=== PATIENT | male | born 1985 | race Asian ===

== ENCOUNTER 2016-10-30 15:15 | Emergency (ER) | payer MEDICAID ==
--- NOTE | 2016-10-30 15:23 | ER Document Report ---
ED Medical Screen (RME) - General Stated Complaint: ANXIOUS Notes: The like he had an episode of anxiety today prior to arrival. I greeted and performed a rapid initial assessment of this patient. Comprehensive ED assessment and evaluation of the patient, analysis of test results and completion of the medical decision making process will be conducted by additional ED providers. TRAVEL OUTSIDE OF THE [place] IN LAST 30 DAYS: No - Related Data Allergies/Adverse Reactions: codeine [Codeine] Adverse Reaction (Intermediate, Verified 03/07/16 02:50) severe stomach pain tramadol HCl [From Ultram] Adverse Reaction (Intermediate, Verified 03/07/16 02: 50) severe stomach problems Past Medical History - Past Medical History Cardiac Medical History: Reports: Hx Hypertension, Hx Heart Murmur - MVP Pulmonary Medical History: Reports: Hx Pneumonia GI Medical History: Reports: Hx Gastritis, Hx Gastroesophageal Reflux Disease, Hx Hiatal Hernia Psychiatric Medical History: Reports: Hx Anxiety, Hx Depression Past Surgical History: Reports: Hx Orthopedic Surgery - club feet bilateral - Immunizations Hx Diphtheria, Pertussis, Tetanus Vaccination: Yes
[2016-10-30] MEDS ORDERED: LORAZEPAM 1 MG TABLET PO ONE (17:39)
--- NOTE | 2016-10-30 18:04 | ER Document Report ---
ED General - General Chief Complaint: Weakness Stated Complaint: ANXIOUS Mode of Arrival: Ambulatory Information source: Patient Notes: 31-year-old male history of pots and mitral valve prolapse presents with complaints of intermittent heart racing episodes. Patient notes it worsens when he stands up. 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 IN LAST 30 DAYS: No - HPI Onset: Other - 1 year duration Onset/Duration: Intermittent Quality of pain: No pain Severity: Mild Pain Level: 1 Associated symptoms: Other Exacerbated by: Standing Relieved by: Denies Similar symptoms previously: Yes Recently seen / treated by doctor: Yes - Related Data Allergies/Adverse Reactions: codeine [Codeine] Adverse Reaction (Intermediate, Verified 03/07/16 02:50) severe stomach pain tramadol HCl [From Ultram] Adverse Reaction (Intermediate, Verified 03/07/16 02: 50) severe stomach problems Past Medical History - Social History Smoking Status: Never Smoker Cigarette use (# per day): No Chew tobacco use (# tins/day): No Smoking Education Provided: No Family History: Reviewed & Not Pertinent Patient has suicidal ideation: No Patient has homicidal ideation: No - Past Medical History Cardiac Medical History: Reports: Hx Hypertension, Hx Heart Murmur - MVP Pulmonary Medical History: Reports: Hx Pneumonia Renal/ Medical History: Denies: Hx Peritoneal Dialysis GI Medical History: Reports: Hx Gastritis, Hx Gastroesophageal Reflux Disease, Hx Hiatal Hernia Psychiatric Medical History: Reports: Hx Anxiety, Hx Depression Past Surgical History: Reports: Hx Orthopedic Surgery - club feet bilateral - Immunizations Hx Diphtheria, Pertussis, Tetanus Vaccination: Yes Review of Systems - Review of Systems Notes: REVIEW OF SYSTEMS: CONSTITUTIONAL : Denies fever, chills, or sweats. Denies recent illness. EENT: Denies eye, ear, throat, or mouth pain or symptoms. Denies nasal or sinus congestion or discharge. Denies throat, tongue, or mouth swelling or difficulty swallowing. CARDIOVASCULAR: Admits to heart racing RESPIRATORY: Denies cough, cold, or chest congestion. Denies shortness of breath, difficulty breathing, or wheezing. GASTROINTESTINAL: Denies abdominal pain or distention. Denies nausea, vomiting , or diarrhea. Denies blood in vomitus, stools, or per rectum. Denies black, tarry stools. Denies constipation. GENITOURINARY: Denies difficulty urinating, painful urination, burning, frequency, blood in urine, or discharge. MUSCULOSKELETAL: Denies back or neck pain or stiffness. Denies joint pain or swelling. SKIN: Denies rash, lesions or sores. HEMATOLOGIC : Denies easy bruising or bleeding. LYMPHATIC: Denies swollen, enlarged glands. NEUROLOGICAL: Denies confusion or altered mental status. Denies passing out or loss of consciousness. Denies dizziness or lightheadedness. Denies headache. Denies weakness or paralysis or loss of use of either side. Denies problems with gait or speech. Denies sensory loss, numbness, or tingling. Denies seizures. PSYCHIATRIC: Denies anxiety or stress. Denies depression, suicidal ideation, or homicidal ideation. ALL OTHER SYSTEMS REVIEWED AND NEGATIVE. Dictation was performed using [employer] voice recognition software PHYSICAL EXAMINATION: GENERAL: Well-appearing, well-nourished and in no acute distress. HEAD: Atraumatic, normocephalic. EYES: Pupils equal round and reactive to light, extraocular movements intact, sclera anicteric, conjunctiva are normal. ENT: Nares patent, oropharynx clear without exudates. Moist mucous membranes. NECK: Normal range of motion, supple without lymphadenopathy LUNGS: Breath sounds clear to auscultation bilaterally and equal. No wheezes rales or rhonchi. HEART: Regular rate and rhythm with murmur ABDOMEN: Soft, nontender, nondistended abdomen. No guarding, no rebound. No masses appreciated. Musculoskeletal: Normal range of motion, no pitting or edema. No cyanosis. NEUROLOGICAL: Cranial nerves grossly intact. Normal speech, normal gait. Normal sensory, motor exams PSYCH: Normal mood, normal affect. SKIN: Warm, Dry, normal turgor, no rashes or lesions noted. Physical Exam - Vital signs Vitals: Temp Pulse Resp BP Pulse Ox 98.3 F 79 18 131/79 H 98 10/30/16 15:49 10/30/16 15:49 10/30/16 15:49 10/30/16 15:49 10/30/16 15:49 Course - Re-evaluation Re-evalutation: 10/30/16 22:46 I believe patient's symptoms are secondary to POTS vs his mitral valve prolapse , pt tsh normal, bilirubin has improved, given that he is well and symptoms on going for 1 year i believe he is stable ot follow up with his rickshaw driver After performing a Medical Screening Examination, I estimate there is LOW risk for RUPTURED ESOPHAGUS, PNEUMOTHORAX, PULMONARY EMBOLISM, ACUTE CORONARY SYNDROME, OR THORACIC AORTIC DISSECTION, thus I consider the discharge disposition reasonable. The patient and I have discussed the diagnosis and risks , and we agree with discharging home with close follow-up. We also discussed returning to the Emergency Department immediately if new or worsening symptoms occur. We have discussed the symptoms which are most concerning (e.g., bloody sputum, worsening pain or shortness of breath) that necessitate immediate return. - Vital Signs Vital signs: Temp Pulse Resp BP Pulse Ox 97.8 F 77 16 134/82 H 99 10/30/16 19:07 10/30/16 19:07 10/30/16 19:07 10/30/16 19:07 10/30/16 19:07 - Laboratory Result Diagrams: 10/30/16 18:17 10/30/16 18:17 Laboratory results interpreted by me: 10/30/16 18:17 Total Bilirubin 2.9 H - EKG Interpretation by Ct EKG shows normal: Sinus rhythm, [place], Intervals, QRS Complexes Discharge - Discharge Clinical Impression: MVP (mitral valve prolapse), Tachycardia Condition: Stable Disposition: HOME, SELF-CARE Instructions: Mitral Valve Prolapse ([facility]) Referrals: NICKOLAS HOLLEY MD [Primary Care Provider] - Follow up as needed ISREAL JOHN MD [EMERITUS] - Follow up tomorrow
[2016-10-30 18:44] LABS: ABSOLUTE BASOPHILS # (AUTO) 0.1 10^3/uL (0.0-0.2); ABSOLUTE LYMPHOCYTES (AUTO) 1.4 10^3/uL (0.5-4.7); ABSOLUTE MONOCYTES (AUTO) 0.6 10^3/uL (0.1-1.4); BASOPHILS % (AUTO) 0.6 % (0-2); EOSINOPHILS % (AUTO) 0.3 % (0-6); RED CELL DISTRIBUTION WIDTH 13.1 % (11.5-14.0)
[2016-10-30 18:46] LABS: ABSOLUTE NEUT (AUTO) 6.9 10^3/uL (1.7-8.2); HEMATOCRIT 46.3 % (37.9-51.0); HEMOGLOBIN 15.4 g/dL (13.5-17.0); HGB HCT DIFFERENCE -0.1; LYMPHOCYTES % (AUTO) 15.1 % (13-45); MEAN CORPUSCULAR HEMOGLOBIN 29.4 pg (27.0-33.4); MEAN CORPUSCULAR HGB CONC 33.2 g/dL (32.0-36.0); MEAN CORPUSCULAR VOLUME 89 fl (80-97); RED BLOOD COUNT 5.22 10^6/uL (4.35-5.55)
[2016-10-30 19:03] LABS: ALANINE AMINOTRANSFERASE 32 U/L (21-72); ALBUMIN 4.1 g/dL (3.5-5.0); ALKALINE PHOSPHATASE 72 U/L (38-126); ANION GAP 13 (5-19); ASPARTATE AMINO TRANSFERASE 21 U/L (17-59); BILIRUBIN,TOTAL 2.9 mg/dL (0.2-1.3); BLOOD UREA NITROGEN 16 mg/dL (7-20); CALCIUM 9.7 mg/dL (8.4-10.2); CARBON DIOXIDE 24 mmol/L (22-30); CHLORIDE 105 mmol/L (98-107); CREATININE RESULT 1.02 mg/dL (0.52-1.25); GLUCOSE 94 mg/dL (75-110); POTASSIUM 4.2 mmol/L (3.6-5.0); SODIUM 142.1 mmol/L (137-145); TOTAL PROTEIN 7.5 g/dL (6.3-8.2)
[2016-10-30 19:09] VITALS: BP 134/82
--- NOTE | 2016-10-30 22:53 | EKG REPORT ---
SEVERITY:- BORDERLINE ECG - SINUS RHYTHM BORDERLINE T ABNORMALITIES, ANT-LAT LEADS : Confirmed by: Ana Laura Edge MD 30-Oct-2016 22:52:53
== END 2016-10-30 18:40 | disposition home or self-care (01) ==
LOC: ER 15:15
DX: I34.1 Nonrheumatic mitral (valve) prolapse (principal); R53.1 Weakness; R00.0 Tachycardia, unspecified; F41.9 Anxiety disorder, unspecified; I10 Essential (primary) hypertension; K21.9 Gastro-esophageal reflux disease without esophagitis; Z88.6 Allergy status to analgesic agent
CPT/HCPCS: 36415; 80053; 84443; 85025; 93005; 93010; 99285

== ENCOUNTER → 2016-11-16 | Outpatient (CLI) | payer MEDICAID | LOC: RAD 14:18 | PROVIDERS: ATTEND Specialist | DX: G35 Multiple sclerosis (principal) | CPT/HCPCS: 70551 ==

== ENCOUNTER → 2016-12-13 | Outpatient (CLI) | payer MEDICAID ==
[2016-12-13 16:04] LABS: ABSOLUTE BASOPHILS # (AUTO) 0.1 10^3/uL (0.0-0.2); ABSOLUTE EOSINOPHILS # (AUTO) 0.1 10^3/uL (0.0-0.6); ABSOLUTE MONOCYTES (AUTO) 1.1 10^3/uL (0.1-1.4); ABSOLUTE NEUT (AUTO) 5.5 10^3/uL (1.7-8.2); EOSINOPHILS % (AUTO) 1.8 % (0-6); HEMATOCRIT 45.2 % (37.9-51.0); HEMOGLOBIN 15.5 g/dL (13.5-17.0); HGB HCT DIFFERENCE 1.3; LYMPHOCYTES % (AUTO) 12.5 % (13-45); MEAN CORPUSCULAR HEMOGLOBIN 30.3 pg (27.0-33.4); MEAN CORPUSCULAR HGB CONC 34.3 g/dL (32.0-36.0); MEAN CORPUSCULAR VOLUME 88 fl (80-97); MONOCYTES % (AUTO) 14.1 % (3-13); RED BLOOD COUNT 5.11 10^6/uL (4.35-5.55); RED CELL DISTRIBUTION WIDTH 13.3 % (11.5-14.0); SEGMENTED NEUTROPHILS % (AUTO) 70.6 % (42-78); WHITE BLOOD COUNT 7.7 10^3/uL (4.0-10.5)
[2016-12-13 16:22] LABS: ALANINE AMINOTRANSFERASE 26 U/L (21-72); ALBUMIN 4.4 g/dL (3.5-5.0); ALKALINE PHOSPHATASE 62 U/L (38-126); ANION GAP 10 (5-19); ASPARTATE AMINO TRANSFERASE 22 U/L (17-59); BILIRUBIN,TOTAL 2.5 mg/dL (0.2-1.3); BLOOD UREA NITROGEN 15 mg/dL (7-20); CALCIUM 9.9 mg/dL (8.4-10.2); CARBON DIOXIDE 30 mmol/L (22-30); CHLORIDE 102 mmol/L (98-107); CREATININE RESULT 0.77 mg/dL (0.52-1.25); GLUCOSE 87 mg/dL (75-110); LIPASE 205.2 U/L (23-300); POTASSIUM 4.3 mmol/L (3.6-5.0); SODIUM 141.6 mmol/L (137-145); TOTAL PROTEIN 7.2 g/dL (6.3-8.2)
== END ==
LOC: OD 14:34
PROVIDERS: ATTEND Nurse Practitioner Acute Care
DX: R10.11 Right upper quadrant pain (principal)
CPT/HCPCS: 36415; 80053; 83690; 85025

== ENCOUNTER 2017-11-14 19:46 | Emergency (ER) | payer MEDICAID ==
--- NOTE | 2017-11-14 20:43 | ER Document Report ---
ED Medical Screen (RME) - General Chief Complaint: Dizziness Stated Complaint: HEART PALPATATIONS Time Seen by Provider: 11/14/17 20:33 Notes: RME DISCLOSURE I have seen this patient as part of a Rapid Medical Evaluation and, if applicable, placed any initially appropriate orders. The patient will be seen and fully evaluated, including a full history and physical exam, by a provider ( in Main ED or Fast Track) when a room becomes available. 32-year-old male here with complaints of palpitations ongoing for many years however it has worsened over the past 3 weeks. He states that he usually gets palpitations 2-3 times a day but over the past few weeks has been getting palpitations every few minutes. He does take metoprolol which he was initially started on for migraine headaches however the migraines resolved but he tells me his doctors kept him on the metoprolol for blood pressure control. He reports that if he does not take his metoprolol, his heart rate is "super high" . He does not have any chest pain shortness of breath or any other symptoms currently though sometimes he will break out in a sweat with these episodes of palpitations. EXAM Regular rate and rhythm TRAVEL OUTSIDE OF THE [place] IN LAST 30 DAYS: No - Related Data Allergies/Adverse Reactions: codeine [Codeine] Adverse Reaction (Intermediate, Verified 11/14/17 20:29) severe stomach pain tramadol HCl [From Ultram] Adverse Reaction (Intermediate, Verified 11/14/17 20: 29) severe stomach problems Past Medical History - Social History Frequency of alcohol use: None Drug Abuse: None - Past Medical History Cardiac Medical History: Reports: Hx Hypertension, Hx Heart Murmur - MVP Pulmonary Medical History: Reports: Hx Pneumonia Renal/ Medical History: Denies: Hx Peritoneal Dialysis GI Medical History: Reports: Hx Gastritis, Hx Gastroesophageal Reflux Disease, Hx Hiatal Hernia Psychiatric Medical History: Reports: Hx Anxiety, Hx Depression Past Surgical History: Reports: Hx Orthopedic Surgery - club feet bilateral - Immunizations Hx Diphtheria, Pertussis, Tetanus Vaccination: Yes Physical Exam - Vital signs Vitals: Temp Pulse Resp BP Pulse Ox 98.4 F 72 16 135/78 H 98 11/14/17 20:00 11/14/17 20:00 11/14/17 20:00 11/14/17 20:00 11/14/17 20:00 Course - Vital Signs Vital signs: Temp Pulse Resp BP Pulse Ox 98.4 F 72 16 135/78 H 98 11/14/17 20:00 11/14/17 20:00 11/14/17 20:00 11/14/17 20:00 11/14/17 20:00
[2017-11-14 21:00] LABS: ABSOLUTE BASOPHILS # (AUTO) 0.1 10^3/uL (0.0-0.2); ABSOLUTE LYMPHOCYTES (AUTO) 1.5 10^3/uL (0.5-4.7); ABSOLUTE MONOCYTES (AUTO) 0.7 10^3/uL (0.1-1.4); ABSOLUTE NEUT (AUTO) 4.1 10^3/uL (1.7-8.2); BASOPHILS % (AUTO) 1.2 % (0-2); EOSINOPHILS % (AUTO) 0.6 % (0-6); HEMATOCRIT 47.3 % (37.9-51.0); HEMOGLOBIN 16.3 g/dL (13.5-17.0); LYMPHOCYTES % (AUTO) 23.3 % (13-45); MEAN CORPUSCULAR HEMOGLOBIN 30.6 pg (27.0-33.4); MEAN CORPUSCULAR HGB CONC 34.4 g/dL (32.0-36.0); MEAN CORPUSCULAR VOLUME 89 fl (80-97); MONOCYTES % (AUTO) 10.3 % (3-13); PLATELET COUNT 187 10^3/uL (150-450); RED BLOOD COUNT 5.33 10^6/uL (4.35-5.55); RED CELL DISTRIBUTION WIDTH 13.1 % (11.5-14.0); SEGMENTED NEUTROPHILS % (AUTO) 64.6 % (42-78); TOTAL CELLS COUNTED % (AUTO) 100 %; WHITE BLOOD COUNT 6.3 10^3/uL (4.0-10.5)
--- NOTE | 2017-11-14 21:16 | ER Document Report ---
ED General - General Chief Complaint: Dizziness Stated Complaint: HEART PALPATATIONS Time Seen by Provider: 11/14/17 20:33 Mode of Arrival: Ambulatory Information source: Patient Notes: 32-year-old male history of palpitations who has had a Holter monitor in the past which noted intermittent skipped beats but otherwise no cardiac events who is on Toprol presents with complaints of palpitations. Patient notes symptoms have been increasing over the past 3 weeks. He denies any fevers or chills denies any actual chest pain shortness of breath difficulty breathing TRAVEL OUTSIDE OF THE [place] IN LAST 30 DAYS: No - HPI Onset: Other - 3 weeks Onset/Duration: Intermittent Quality of pain: No pain Severity: Mild Pain Level: Denies Associated symptoms: Other Exacerbated by: Food Relieved by: Denies Similar symptoms previously: Yes Recently seen / treated by doctor: Yes - Related Data Allergies/Adverse Reactions: codeine [Codeine] Adverse Reaction (Intermediate, Verified 11/14/17 20:29) severe stomach pain tramadol HCl [From Ultra] Adverse Reaction (Intermediate, Verified 11/14/17 20: 29) severe stomach problems Past Medical History - Social History Smoking Status: Former Smoker Cigarette use (# per day): No Chew tobacco use (# tins/day): No Smoking Education Provided: No Frequency of alcohol use: None Drug Abuse: None Family History: Reviewed & Not Pertinent Patient has suicidal ideation: No Patient has homicidal ideation: No - Past Medical History Cardiac Medical History: Reports: Hx Hypertension, Hx Heart Murmur - MVP Pulmonary Medical History: Reports: Hx Pneumonia Renal/ Medical History: Denies: Hx Peritoneal Dialysis GI Medical History: Reports: Hx Gastritis, Hx Gastroesophageal Reflux Disease, Hx Hiatal Hernia Psychiatric Medical History: Reports: Hx Anxiety, Hx Depression Past Surgical History: Reports: Hx Orthopedic Surgery - club feet bilateral - Immunizations Hx Diphtheria, Pertussis, Tetanus Vaccination: Yes Review of Systems - Review of Systems Notes: REVIEW OF SYSTEMS: CONSTITUTIONAL : Denies fever, chills, or sweats. Denies recent illness. EENT: Denies eye, ear, throat, or mouth pain or symptoms. Denies nasal or sinus congestion or discharge. Denies throat, tongue, or mouth swelling or difficulty swallowing. CARDIOVASCULAR: Admits to palpitations RESPIRATORY: Denies cough, cold, or chest congestion. Denies shortness of breath, difficulty breathing, or wheezing. GASTROINTESTINAL: Denies abdominal pain or distention. Denies nausea, vomiting , or diarrhea. Denies blood in vomitus, stools, or per rectum. Denies black, tarry stools. Denies constipation. GENITOURINARY: Denies difficulty urinating, painful urination, burning, frequency, blood in urine, or discharge. MUSCULOSKELETAL: Denies back or neck pain or stiffness. Denies joint pain or swelling. SKIN: Denies rash, lesions or sores. HEMATOLOGIC : Denies easy bruising or bleeding. LYMPHATIC: Denies swollen, enlarged glands. NEUROLOGICAL: Denies confusion or altered mental status. Denies passing out or loss of consciousness. Denies dizziness or lightheadedness. Denies headache. Denies weakness or paralysis or loss of use of either side. Denies problems with gait or speech. Denies sensory loss, numbness, or tingling. Denies seizures. PSYCHIATRIC: Denies anxiety or stress. Denies depression, suicidal ideation, or homicidal ideation. ALL OTHER SYSTEMS REVIEWED AND NEGATIVE. Dictation was performed using [employer] voice recognition software PHYSICAL EXAMINATION: GENERAL: Well-appearing, well-nourished and in no acute distress. HEAD: Atraumatic, normocephalic. EYES: Pupils equal round and reactive to light, extraocular movements intact, sclera anicteric, conjunctiva are normal. ENT: Nares patent, oropharynx clear without exudates. Moist mucous membranes. NECK: Normal range of motion, supple without lymphadenopathy LUNGS: Breath sounds clear to auscultation bilaterally and equal. No wheezes rales or rhonchi. HEART: Regular rate and rhythm without murmurs ABDOMEN: Soft, nontender, nondistended abdomen. No guarding, no rebound. No masses appreciated. Musculoskeletal: Normal range of motion, no pitting or edema. No cyanosis. NEUROLOGICAL: Cranial nerves grossly intact. Normal speech, normal gait. Normal sensory, motor exams PSYCH: Anxious SKIN: Warm, Dry, normal turgor, no rashes or lesions noted. Physical Exam - Vital signs Vitals: Temp Pulse Resp BP Pulse Ox 98.4 F 72 16 135/78 H 98 11/14/17 20:00 11/14/17 20:00 11/14/17 20:00 11/14/17 20:00 11/14/17 20:00 Course - Re-evaluation Re-evalutation: 11/15/17 00:06 Patient's presentation is consistent with palpitations, he was on the vehicle monitor technician no significant abnormalities were noted, patient will be treated for his gastric reflux symptoms which she states seemed to cause worsening palpitation. Otherwise patient looks well is in no distress and is stable for discharge with follow-up with his own latcher. Patient is happy with this plan After performing a Medical Screening Examination, I estimate there is LOW risk for RUPTURED ESOPHAGUS, PNEUMOTHORAX, PULMONARY EMBOLISM, ACUTE CORONARY SYNDROME, OR THORACIC AORTIC DISSECTION, thus I consider the discharge disposition reasonable. I have reevaluated this patient multiple times and no significant life threatening changes are noted. The patient and I have discussed the diagnosis and risks, and we agree with discharging home with close follow-up. We also discussed returning to the Emergency Department immediately if new or worsening symptoms occur. We have discussed the symptoms which are most concerning (e.g., bloody sputum, worsening pain or shortness of breath) that necessitate immediate return. - Vital Signs Vital signs: Temp Pulse Resp BP Pulse Ox 98.4 F 72 14 121/75 99 11/14/17 20:00 11/14/17 20:00 11/14/17 21:01 11/14/17 21:00 11/14/17 21:01 - Laboratory Result Diagrams: 11/14/17 20:45 11/14/17 20:45 - EKG Interpretation by [place] EKG shows normal: Sinus rhythm, [place], Intervals, QRS Complexes Discharge - Discharge Clinical Impression: Palpitation GERD (gastroesophageal reflux disease) Qualifiers: Esophagitis presence: with esophagitis Qualified Code(s): K21.0 - Gastro- esophageal reflux disease with esophagitis Condition: Stable Disposition: HOME, SELF-CARE Instructions: Palpitations (Irregular or Rapid Heartrate) ([facility]) Additional Instructions: Follow up with your physician tomorrow for further care or return to the ED IMMEDIATELY if symptoms worsen or new concerns occur. If you cannot afford to follow up with your primary care physician a list of low cost clinics have been provided at the end of your discharge papers as well. Prescriptions: Omeprazole 20 mg PO DAILY #30 tablet.
[2017-11-14 21:27] LABS: ANION GAP 10 (5-19); BLOOD UREA NITROGEN 15 mg/dL (7-20); CALCIUM 9.6 mg/dL (8.4-10.2); CARBON DIOXIDE 27 mmol/L (22-30); CHLORIDE 104 mmol/L (98-107); GLUCOSE 86 mg/dL (75-110); MAGNESIUM 2.3 mg/dL (1.6-2.3); PHOSPHORUS 4.2 mg/dL (2.5-4.5); POTASSIUM 4.2 mmol/L (3.6-5.0); SODIUM 140.6 mmol/L (137-145)
[2017-11-14 21:48] VITALS: BP 121/75
--- NOTE | 2017-11-15 09:26 | EKG REPORT ---
SEVERITY:- ABNORMAL ECG - SINUS RHYTHM NONSPECIFIC T ABNORMALITIES, ANT-LAT LEADS : Confirmed by: Donn Montanez 15-Nov-2017 09:26:28
== END 2017-11-14 21:49 | disposition home or self-care (01) ==
LOC: ER 19:46
DX: R00.2 Palpitations (principal); K21.0 Gastro-esophageal reflux disease with esophagitis; I10 Essential (primary) hypertension; Z87.891 Personal history of nicotine dependence
CPT/HCPCS: 36415; 80048; 83735; 84100; 84443; 85025; 93005; 93010; 99284

== ENCOUNTER → 2018-01-30 | Outpatient (CLI) | payer MEDICAID ==
[2018-01-30 18:09] LABS: ABSOLUTE BASOPHILS # (AUTO) 0.1 10^3/uL (0.0-0.2); ABSOLUTE LYMPHOCYTES (AUTO) 1.4 10^3/uL (0.5-4.7); ABSOLUTE MONOCYTES (AUTO) 0.5 10^3/uL (0.1-1.4); ABSOLUTE NEUT (AUTO) 4.4 10^3/uL (1.7-8.2); BASOPHILS % (AUTO) 1.1 % (0-2); EOSINOPHILS % (AUTO) 0.4 % (0-6); HEMOGLOBIN 16.2 g/dL (13.5-17.0); LYMPHOCYTES % (AUTO) 22.2 % (13-45); MEAN CORPUSCULAR HEMOGLOBIN 30.5 pg (27.0-33.4); MEAN CORPUSCULAR HGB CONC 35.2 g/dL (32.0-36.0); MEAN CORPUSCULAR VOLUME 87 fl (80-97); PLATELET COUNT 185 10^3/uL (150-450); RED BLOOD COUNT 5.29 10^6/uL (4.35-5.55); RED CELL DISTRIBUTION WIDTH 13.2 % (11.5-14.0); SEGMENTED NEUTROPHILS % (AUTO) 68.3 % (42-78); TOTAL CELLS COUNTED % (AUTO) 100 %; WHITE BLOOD COUNT 6.4 10^3/uL (4.0-10.5)
[2018-01-30 18:30] LABS: ALANINE AMINOTRANSFERASE 32 U/L (21-72); ALBUMIN 4.4 g/dL (3.5-5.0); ALKALINE PHOSPHATASE 57 U/L (38-126); ANION GAP 13 (5-19); ASPARTATE AMINO TRANSFERASE 24 U/L (17-59); BILIRUBIN,DIRECT 0.3 mg/dL (0.0-0.4); BILIRUBIN,TOTAL 3.3 mg/dL (0.2-1.3); BLOOD UREA NITROGEN 12 mg/dL (7-20); CALCIUM 9.5 mg/dL (8.4-10.2); CARBON DIOXIDE 28 mmol/L (22-30); CHLORIDE 103 mmol/L (98-107); GLUCOSE 99 mg/dL (75-110); SODIUM 144.4 mmol/L (137-145); TOTAL PROTEIN 7.3 g/dL (6.3-8.2)
== END ==
LOC: LAB 17:54
PROVIDERS: ATTEND Nurse Practitioner Acute Care
DX: R59.1 Generalized enlarged lymph nodes (principal)
CPT/HCPCS: 36415; 80053; 85025

== ENCOUNTER → 2018-01-30 | Outpatient (CLI) | payer MEDICAID ==
--- NOTE | 2018-01-30 18:05 | RADIOLOGY REPORT (SQ) ---
EXAM DESCRIPTION: SHOULDER RIGHT 2 OR MORE VIEWS COMPLETED DATE/TIME: 01/30/2018 5:57 pm REASON FOR STUDY: RIGHT ANTERIOR SHOULDER PAIN COMPARISON: None. NUMBER OF VIEWS: Three views. TECHNIQUE: Internal rotation, external rotation, and Y view images acquired of the right shoulder. LIMITATIONS: None. FINDINGS: MINERALIZATION: Normal. BONES: No acute fracture or dislocation. No worrisome bone lesions. JOINTS: No dislocation. VISUALIZED LUNGS AND RIBS: No pneumothorax. No rib fracture. SOFT TISSUES: No radiopaque foreign body. OTHER: No other significant finding. IMPRESSION: NEGATIVE STUDY OF THE RIGHT SHOULDER. NO RADIOGRAPHIC EVIDENCE OF ACUTE INJURY. TECHNICAL DOCUMENTATION: JOB ID: [id number] [employer]- All Rights Reserved Reading location - IP/workstation name: [email or web address]
== END ==
LOC: RAD 17:38
PROVIDERS: ATTEND Nurse Practitioner Acute Care
DX: M25.511 Pain in right shoulder (principal)

== ENCOUNTER → 2018-02-13 | Outpatient (CLI) | payer MEDICAID ==
--- NOTE | 2018-02-13 16:32 | RADIOLOGY REPORT (SQ) ---
EXAM DESCRIPTION: U/S THYROID/SFT TISS HD NECK COMPLETED DATE/TIME: 02/13/2018 3:36 pm REASON FOR STUDY: R59.1 GENERALIZED ENLARGED LYMPH NODES R59.1 GENERALIZED ENLARGED LYMPH NODES COMPARISON: None. TECHNIQUE: Patient has palpable nodule along the right supraclavicular region. Ultrasound of this a walter was performed including grayscale, color flow, and cine loop images LIMITATIONS: None. FINDINGS: Ultrasound of the right supraclavicular region demonstrates a 3 x 1.2 cm lymph node which is abnormal. There is loss of central lymph node hilum and heterogeneous echogenicity. There is int ernal color flow in the lymph node. This could be reactive or could be a malignant lymph node. Cons ider a CTA of the neck soft tissues and chest with IV contrast for followup. IMPRESSION: Abnormal 3 x 1.2 cm right supraclavicular lymph node which could be reactive, inflammato ry, or neoplastic. More complete anatomic survey of the neck and chest is recommended with CT exams with IV contrast TECHNICAL DOCUMENTATION: JOB ID: [id number] [employer]- All Rights Reserved Reading location - IP/workstation name: [email or web address]
== END ==
LOC: RAD 15:53
PROVIDERS: ATTEND Family Medicine
DX: R59.1 Generalized enlarged lymph nodes (principal)
CPT/HCPCS: 76536

== ENCOUNTER → 2018-03-06 | Outpatient (CLI) | payer MEDICAID ==
--- NOTE | 2018-03-06 13:44 | RADIOLOGY REPORT (SQ) ---
EXAM DESCRIPTION: CT SOFT TISSUE NECK WITHOUT COMPLETED DATE/TIME: 03/06/2018 1:21 pm REASON FOR STUDY: LYMPHADENOPATHY R59.9 ENLARGED LYMPH NODES, UNSPECIFIED COMPARISON: None. TECHNIQUE: Noncontrast scanning from skull base through lung apices with review of bone, soft tissue and lung windows. Reconstructed coronal and sagittal MPR images reviewed. All images stored on PAC S. All CT scanners at this facility use dose modulation, iterative reconstruction, and/or weight based d osing when appropriate to reduce radiation dose to as low as reasonably achievable (ALARA). [facility]: Dose Right [facility]: CareDose [facility]: Dose Right [facility]: Teradose 4D [facility]: [employer] RADIATION DOSE: mGy. LIMITATIONS: None. FINDINGS: SKULL BASE: Intact. MAJOR SALIVARY GLANDS: No solid or cystic masses. No inflammatory changes. LYMPHADENOPATHY: No adenopathy. MUCOSAL MASSES OR ASYMMETRY: No mucosal masses or asymmetry. LARYNX/CORDS: No abnormal findings. LUNG APICES: Clear. BONES: Intact. THYROID: Normal size. No masses. PARANASAL SINUSES: Clear. OTHER: No other significant finding. IMPRESSION: NO SIGNIFICANT FINDING IN THE SOFT TISSUES OF THE NECK. NO SIGNIFICANT ADENOPATHY. TECHNICAL DOCUMENTATION: JOB ID: [id number] Quality ID # [id number]: Final reports with documentation of one or more dose reduction techniques (e.g., Au tomated exposure control, adjustment of the mA and/or kV according to patient size, use of iterative reconstruction technique) 2010 [employer]- All Rights Reserved Reading location - IP/workstation name: [email or web address]
== END ==
LOC: RAD 13:02
PROVIDERS: ATTEND Internal Medicine
DX: R59.9 Enlarged lymph nodes, unspecified (principal)
CPT/HCPCS: 70490

== ENCOUNTER 2018-05-11 15:23 | Emergency (ER) | payer MEDICAID ==
[2018-05-11] MEDS ORDERED: ASPIRIN 325 MG TABLET PO ONE (16:17)
--- NOTE | 2018-05-11 16:19 | ER Document Report ---
ED Medical Screen (RME) - General Chief Complaint: Palpitations Stated Complaint: HEART BEAT ISSUE, SWEATING Time Seen by Provider: 05/11/18 16:17 Mode of Arrival: Ambulatory Information source: Patient TRAVEL OUTSIDE OF THE [place] IN LAST 30 DAYS: No - HPI Patient complains to provider of: cp; palpitations Onset: Yesterday - pt. with c/o CP and palpitations starting yesterday - Related Data Allergies/Adverse Reactions: codeine [Codeine] Adverse Reaction (Intermediate, Verified 05/11/18 16:04) severe stomach pain tramadol HCl [From Ultram] Adverse Reaction (Intermediate, Verified 05/11/18 16: 04) severe stomach problems Past Medical History - Social History Chew tobacco use (# tins/day): No Frequency of alcohol use: None Drug Abuse: None - Past Medical History Cardiac Medical History: Reports: Hx Hypertension, Hx Heart Murmur - MVP Pulmonary Medical History: Reports: Hx Pneumonia Renal/ Medical History: Denies: Hx Peritoneal Dialysis GI Medical History: Reports: Hx Gastritis, Hx Gastroesophageal Reflux Disease, Hx Hiatal Hernia Psychiatric Medical History: Reports: Hx Anxiety, Hx Depression - anxiety Past Surgical History: Reports: Hx Orthopedic Surgery - club feet bilateral - Immunizations Hx Diphtheria, Pertussis, Tetanus Vaccination: Yes Physical Exam - Vital signs Vitals: Temp Pulse Resp BP Pulse Ox 98.0 F 127 H 20 152/98 H 99 05/11/18 15:49 05/11/18 15:49 05/11/18 15:49 05/11/18 15:49 05/11/18 15:49 Course - Vital Signs Vital signs: Temp Pulse Resp BP Pulse Ox 98.0 F 127 H 20 152/98 H 99 05/11/18 15:49 05/11/18 15:49 05/11/18 15:49 05/11/18 15:49 05/11/18 15:49 Doctor's Discharge - Discharge Referrals: ODALIS ZAMUDIO MD [Primary Care Provider] - Follow up as needed
--- NOTE | 2018-05-11 16:40 | RADIOLOGY REPORT (SQ) ---
EXAM DESCRIPTION: CHEST 2 VIEWS COMPLETED DATE/TIME: 05/11/2018 4:32 pm REASON FOR STUDY: cp COMPARISON: 09/30/2016. EXAM PARAMETERS: NUMBER OF VIEWS: two views TECHNIQUE: Digital Frontal and Lateral radiographic views of the chest acquired. RADIATION DOSE: NA LIMITATIONS: none FINDINGS: LUNGS AND PLEURA: No opacities, masses or pneumothorax. No pleural effusion. MEDIASTINUM AND HILAR STRUCTURES: No masses or contour abnormalities. HEART AND VASCULAR STRUCTURES: Heart normal size. No evidence for failure. BONES: No acute findings. HARDWARE: None in the chest. OTHER: No other significant finding. IMPRESSION: NO ACUTE RADIOGRAPHIC FINDING IN THE CHEST. TECHNICAL DOCUMENTATION: JOB ID: [id number] [employer]- All Rights Reserved Reading location - IP/workstation name: [email or web address]
[2018-05-11 17:29] LABS: ABSOLUTE BASOPHILS # (AUTO) 0.1 10^3/uL (0.0-0.2); ABSOLUTE LYMPHOCYTES (AUTO) 1.3 10^3/uL (0.5-4.7); ABSOLUTE MONOCYTES (AUTO) 0.5 10^3/uL (0.1-1.4); ABSOLUTE NEUT (AUTO) 4.5 10^3/uL (1.7-8.2); BASOPHILS % (AUTO) 1.1 % (0-2); EOSINOPHILS % (AUTO) 0.4 % (0-6); HEMATOCRIT 46.7 % (37.9-51.0); HEMOGLOBIN 16.3 g/dL (13.5-17.0); LYMPHOCYTES % (AUTO) 20.8 % (13-45); MEAN CORPUSCULAR HEMOGLOBIN 30.3 pg (27.0-33.4); MEAN CORPUSCULAR VOLUME 87 fl (80-97); MONOCYTES % (AUTO) 7.4 % (3-13); PLATELET COUNT 175 10^3/uL (150-450); RED BLOOD COUNT 5.39 10^6/uL (4.35-5.55); RED CELL DISTRIBUTION WIDTH 13.2 % (11.5-14.0); SEGMENTED NEUTROPHILS % (AUTO) 70.3 % (42-78); TOTAL CELLS COUNTED % (AUTO) 100 %; WHITE BLOOD COUNT 6.4 10^3/uL (4.0-10.5)
--- NOTE | 2018-05-11 17:44 | ER Document Report ---
ED General - General Mode of Arrival: Ambulatory Information source: Patient TRAVEL OUTSIDE OF THE [place] IN LAST 30 DAYS: No <LEW BOYD - Last Filed: 05/11/18 18:57> <RONOMER Farmer - Last Filed: 05/11/18 23:42> - General Chief Complaint: Palpitations Stated Complaint: HEART BEAT ISSUE, SWEATING Time Seen by Provider: 05/11/18 16:17 Notes: Patient is a 33 year old male with a history of a minor mitral valve prolapse and POTS presents to the emergency department complaining of intermittent heart palpations, epigastric pain and diaphoresis onset today. Patient states he was helping install carpet by standing on it when he began to feel his heart racing and began to feel diaphoretic. He states he had a finger monitor and recorded his heart rate being 150 bpm. He states he also noticed some epigastric pain described as a sharpness, although this has resolved. Patient denies any fevers, cough or congestion. Patient follows up with [facility]. (LEW BYOD) - Related Data Allergies/Adverse Reactions: codeine [Codeine] Adverse Reaction (Intermediate, Verified 05/11/18 16:04) severe stomach pain tramadol HCl [From Ultram] Adverse Reaction (Intermediate, Verified 05/11/18 16: 04) severe stomach problems Past Medical History - General Information source: Patient - Social History Smoking Status: Never Smoker Chew tobacco use (# tins/day): No Frequency of alcohol use: None Drug Abuse: None Family History: Reviewed & Not Pertinent Patient has suicidal ideation: No Patient has homicidal ideation: No - Past Medical History Cardiac Medical History: Reports: Hx Hypertension, Hx Heart Murmur - MVP Pulmonary Medical History: Reports: Hx Pneumonia GI Medical History: Reports: Hx Gastritis, Hx Gastroesophageal Reflux Disease, Hx Hiatal Hernia Psychiatric Medical History: Reports: Hx Anxiety, Hx Depression - anxiety Past Surgical History: Reports: Hx Orthopedic Surgery - club feet bilateral - Immunizations Hx Diphtheria, Pertussis, Tetanus Vaccination: Yes <LEW BOYD - Last Filed: 05/11/18 18:57> Review of Systems - Review of Systems Constitutional: See HPI, Diaphoresis EENT: No symptoms reported Cardiovascular: No symptoms reported, See HPI, Palpitations Respiratory: No symptoms reported Gastrointestinal: See HPI, Abdominal pain Genitourinary: No symptoms reported Male Genitourinary: No symptoms reported Musculoskeletal: No symptoms reported Skin: No symptoms reported Hematologic/Lymphatic: No symptoms reported Neurological/Psychological: No symptoms reported -: Yes All other systems reviewed and negative <LEW BOYD - Last Filed: 05/11/18 18:57> Physical Exam <LEW BOYD - Last Filed: 05/11/18 18:57> <RONOMER - Last Filed: 05/11/18 23:42> - Vital signs Vitals: Temp Pulse Resp BP Pulse Ox 98.0 F 127 H 20 152/98 H 99 05/11/18 15:49 05/11/18 15:49 05/11/18 15:49 05/11/18 15:49 05/11/18 15:49 - Notes Notes: GENERAL: Alert, interacts well. No acute distress. HEAD: Normocephalic, atraumatic. EYES: Pupils equal, round, and reactive to light. Extraocular movements intact. ENT: Oral mucosa moist, tongue midline. Pronounced Thompson's apple. NECK: Full range of motion. Supple. Trachea midline. LUNGS: Clear to auscultation bilaterally, no wheezes, rales, or rhonchi. No respiratory distress. HEART: Regular rate and rhythm. No murmurs, gallops, or rubs. ABDOMEN: Soft, non-tender. Non-distended. Bowel sounds present in all 4 quadrants. EXTREMITIES: Moves all 4 extremities spontaneously. NEUROLOGICAL: Alert and oriented x3. Normal speech. PSYCH: Normal affect, normal mood. SKIN: Warm, dry, normal turgor. No rashes or lesions noted. (LEW BOYD) Course - Laboratory Result Diagrams: 05/11/18 17:10 05/11/18 17:10 <LEW BOYD - Last Filed: 05/11/18 18:57> - Laboratory Result Diagrams: 05/11/18 17:10 05/11/18 17:10 - EKG Interpretation by Dc EKG shows normal: Sinus rhythm Rate: Tachycardia Rhythm: NSR <OMER VELASQUEZ - Last Filed: 05/11/18 23:42> - Re-evaluation Re-evalutation: 05/11/18 21:05 Patient asymptomatic in the emergency department. Workup reveals no acute findings. Patient denies any chest pain just felt like his heart was racing. Thyroid is normal. Patient does have history of anxiety. He also has a history of pots. Is noted that when he stands up his heart rate will go up into the 120s and then worked back down into the 1 teens. He states that he goes to a cardiology group, [facility]. I will call our senior writer to get a second referral that the patient can get into. Spoke to Dr. Montanez who stated to instruct patient to take his Toprol twice a day and to come to his clinic on Monday for follow-up. (OMER VELASQUEZ) - Vital Signs Vital signs: Temp Pulse Resp BP Pulse Ox 98.0 F 96 22 H 123/84 98 05/11/18 15:49 05/11/18 21:55 05/11/18 21:55 05/11/18 21:55 05/11/18 21:55 - Laboratory Laboratory results interpreted by me: 05/11/18 17:10 Total Bilirubin 4.3 H Direct Bilirubin 0.5 H ALT 19 L Discharge <LEW BOYD - Last Filed: 05/11/18 18:57> <OMER VELASQUEZ - Last Filed: 05/11/18 23:42> - Discharge Clinical Impression: Tachycardia Condition: Good Disposition: HOME, SELF-CARE Instructions: Beta Blockers ([facility]), Sinus Tachycardia ([facility]) Additional Instructions: Please start taking your Toprol twice a day instead of once a day until seen by Dr. Montanez Referrals: PAYAL MONTANEZ MD [ACTIVE STAFF] - Follow up as needed (Dr. Montanez is expecting to see you on Monday) Scribe Attestation: 05/11/18 23:42 I personally performed the services described in the documentation, reviewed and edited the documentation which was dictated to the scribe in my presence, and it accurately records my words and actions. (OMER VELASQUEZ) Scribe Documentation - Scribe Written by Liliana:: Liliana Smith, 05/11/2018 18:17 acting as scribe for :: Ron <LEW BOYD - Last Filed: 05/11/18 18:57>
[2018-05-11 17:47] LABS: ALANINE AMINOTRANSFERASE 19 U/L (21-72); ALBUMIN 4.6 g/dL (3.5-5.0); ALKALINE PHOSPHATASE 66 U/L (38-126); ANION GAP 12 (5-19); ASPARTATE AMINO TRANSFERASE 43 U/L (17-59); BILIRUBIN,DIRECT 0.5 mg/dL (0.0-0.4); BILIRUBIN,TOTAL 4.3 mg/dL (0.2-1.3); BLOOD UREA NITROGEN 20 mg/dL (7-20); CALCIUM 9.3 mg/dL (8.4-10.2); CARBON DIOXIDE 27 mmol/L (22-30); CHLORIDE 104 mmol/L (98-107); CREATINE KINASE 135 U/L (55-170); GLUCOSE 85 mg/dL (75-110); POTASSIUM 4.2 mmol/L (3.6-5.0); TOTAL PROTEIN 8.1 g/dL (6.3-8.2)
[2018-05-11 17:57] LABS: CREATINE KINASE MB 0.46 ng/mL (<4.55)
[2018-05-11 18:00] LABS: TROPONIN I < 0.012 ng/mL
[2018-05-11 19:06] LABS: URINE AMPHETAMINES SCREEN NEGATIVE; URINE BARBITURATES SCREEN NEGATIVE; URINE BENZODIAZEPINES SCREEN NEGATIVE; URINE COCAINE SCREEN NEGATIVE; URINE MARIJUANA (THC) SCREEN NEGATIVE; URINE METHADONE SCREEN NEGATIVE; URINE PHENCYCLIDINE SCREEN NEGATIVE
[2018-05-11] MEDS ORDERED: NORMAL SALINE 1000 ML 1,000 ML IV ONE (21:11)
[2018-05-11 21:59] VITALS: BP 123/84
--- NOTE | 2018-05-12 00:03 | EKG REPORT ---
SEVERITY:- ABNORMAL ECG - SINUS TACHYCARDIA FIRST DEGREE AV BLOCK : Confirmed by: Ana Laura Edge MD 12-May-2018 00:03:15
== END 2018-05-11 21:54 | disposition home or self-care (01) ==
LOC: ER 15:23
DX: R00.0 Tachycardia, unspecified (principal); R00.2 Palpitations; R10.13 Epigastric pain; R61 Generalized hyperhidrosis; I10 Essential (primary) hypertension; Z79.899 Other long term (current) drug therapy
CPT/HCPCS: 93005; 99285; 96360; 36415; 82553; 82550; 84443; 85025; 80053; 84484; 80307; 71046; 93010; J7030

== ENCOUNTER → 2018-07-14 | Outpatient (CLI) | payer MEDICAID ==
--- NOTE | 2018-07-14 14:24 | RADIOLOGY REPORT (SQ) ---
EXAM DESCRIPTION: CHEST 2 VIEWS COMPLETED DATE/TIME: 07/14/2018 12:37 pm REASON FOR STUDY: SHORTNESS OF BREATH COMPARISON: 05/11/2018 TECHNIQUE: Frontal and lateral radiographic views of the chest acquired. NUMBER OF VIEWS: Two view. LIMITATIONS: None. FINDINGS: LUNGS AND PLEURA: No pneumothorax. No consolidation or pleural effusion. MEDIASTINUM AND HILAR STRUCTURES: Stable. HEART AND VASCULAR STRUCTURES: Stable. BONES: No acute findings. HARDWARE: None in the chest. OTHER: No other significant finding. IMPRESSION: NO ACUTE FINDINGS. TECHNICAL DOCUMENTATION: JOB ID: [id number] 2010 [employer]- All Rights Reserved Reading location - IP/workstation name: [email or web address]
== END ==
LOC: RAD 12:28
PROVIDERS: ATTEND Nurse Practitioner Family
DX: R06.02 Shortness of breath (principal)
CPT/HCPCS: 71046

== ENCOUNTER 2018-07-21 10:32 | Emergency (ER) | payer MEDICAID ==
--- NOTE | 2018-07-21 11:56 | RADIOLOGY REPORT (SQ) ---
EXAM DESCRIPTION: CHEST 2 VIEWS COMPLETED DATE/TIME: 07/21/2018 11:16 am REASON FOR STUDY: enlarged supraclavicular lymph node COMPARISON: Two-view chest 07/14/2018 EXAM PARAMETERS: NUMBER OF VIEWS: two views TECHNIQUE: Digital Frontal and Lateral radiographic views of the chest acquired. RADIATION DOSE: NA LIMITATIONS: none FINDINGS: LUNGS AND PLEURA: No opacities, masses or pneumothorax. No pleural effusion. MEDIASTINUM AND HILAR STRUCTURES: No masses or contour abnormalities. HEART AND VASCULAR STRUCTURES: Heart normal size. No evidence for failure. BONES: No acute findings. HARDWARE: None in the chest. OTHER: No other significant finding. IMPRESSION: NO ACUTE RADIOGRAPHIC FINDING IN THE CHEST. TECHNICAL DOCUMENTATION: JOB ID: [id number] [employer]- All Rights Reserved Reading location - IP/workstation name: [email or web address]
[2018-07-21] MEDS ORDERED: LIDOCAINE 5% (700 MG) TRANSDERMAL ADH..PATCH TP ONE (12:22)
--- NOTE | 2018-07-21 13:26 | ER Document Report ---
HPI - HPI Pain Level: 3 Notes: Patient is a 33-year-old male who presents with chief complaint of swollen lymph node just above the left clavicle. Patient reports this has been there for several years however it has swelled up over the last few days. Patient denies any fevers, cough or any other symptoms. - CONSTITUTIONAL Constitutional: DENIES: Fever, Chills - EENT EENT: DENIES: Sore Throat, Ear Pain, Eye problems - NEURO Neurology: DENIES: Headache, Weakness, Vision blurred, Dizzinesss / Vertigo - CARDIOVASCULAR Cardiovascular: DENIES: Chest pain - RESPIRATORY Respiratory: DENIES: Trouble Breathing, Coughing - GASTROINTESTINAL Gastrointestinal: DENIES: Abdominal Pain, Black / Bloody Stools - URINARY Urinary: DENIES: Dysuria, Urgency, Frequency - MUSCULOSKELETAL Musculoskeletal: DENIES: Extremity pain Past Medical History - General Information source: Patient - Social History Smoking Status: Former Smoker Chew tobacco use (# tins/day): No Frequency of alcohol use: None Drug Abuse: None Family History: Reviewed & Not Pertinent Patient has suicidal ideation: No Patient has homicidal ideation: No - Past Medical History Cardiac Medical History: Reports: Hx Hypertension, Hx Heart Murmur - MVP Pulmonary Medical History: Reports: Hx Pneumonia Renal/ Medical History: Denies: Hx Peritoneal Dialysis GI Medical History: Reports: Hx Gastritis, Hx Gastroesophageal Reflux Disease, Hx Hiatal Hernia Psychiatric Medical History: Reports: Hx Anxiety, Hx Depression - anxiety Past Surgical History: Reports: Hx Orthopedic Surgery - club feet bilateral - Immunizations Hx Diphtheria, Pertussis, Tetanus Vaccination: Yes Vertical Provider Document - CONSTITUTIONAL Notes: PHYSICAL EXAMINATION: GENERAL: Well-appearing, well-nourished and in no acute distress. HEAD: Atraumatic, normocephalic. EYES: Pupils equal round extraocular movements intact, conjunctiva are normal. ENT: Nares patent NECK: Normal range of motion palpable lymph node just above, right clavicle. LUNGS: No respiratory distress Musculoskeletal: Normal range of motion NEUROLOGICAL: Normal speech, normal gait. PSYCH: Normal mood, normal affect. SKIN: Warm, Dry, normal turgor, no rashes or lesions noted. - INFECTION CONTROL TRAVEL OUTSIDE OF THE [place] IN LAST 30 DAYS: No Course - Re-evaluation Re-evalutation: Chest x-ray is negative for any acute findings, unchanged from previous chest x- ray done 2 months ago. Patient has already had extensive workup done on this particular lymph node with ultrasound done approximately 4-6 months ago. Patient reports that his primary care provider stated that if the lymph nodes welled up again he would probably need to have a biopsy. I explained to patient we do not do biopsies in the emergency department but rather he can have this done via his primary care provider. Patient is agreeable with this plan. Patient will be discharged home in stable condition with plan to follow- up with both his primary care provider as well as Dr. Garcia. - Vital Signs Vital signs: Temp Pulse Resp BP Pulse Ox 97.6 F 72 16 121/75 99 07/21/18 10:37 07/21/18 10:37 07/21/18 10:37 07/21/18 10:37 07/21/18 10:37 Discharge - Discharge Clinical Impression: Lymphadenopathy Condition: Stable Disposition: HOME, SELF-CARE Additional Instructions: Lymphadenopathy You have enlargement of lymph glands, called lymphadenopathy. Lymph glands filter tissue fluids. They help to fight infection. Most of the time, enlarged lymph glands are not serious. Lymph glands may react to a viral or bacterial infection by becoming swollen and painful. When the infection goes away, the glands shrink. Sometimes a lymph gland will remain enlarged for a long time after an infection. Occasionally, a lymph gland may be overwhelmed by infection and form an abscess. If an enlarged lymph gland has signs that are suspicious for tumor, the doctor will recommend a biopsy. A suspicious gland usually is NOT painful, grows very slowly, and is rock-hard to touch. See the doctor or return if there is increasing swelling and redness, high fever, difficulty breathing, or any other change for the worse. The x-ray done today was unchanged from the x-ray that was done on you 2 months ago. My suggestion would be to follow-up with either your primary care provider or Dr. Robbins to discuss possibly doing a biopsy on the area of concern. Please return to the emergency department if you develop worsening symptoms, develop a fever or start feeling unwell. Referrals: ODALIS ZAMUDIO MD [Primary Care Provider] - Follow up as needed
[2018-07-21 13:41] VITALS: BP 122/76
== END 2018-07-21 13:43 | disposition home or self-care (01) ==
LOC: ER 10:32
DX: R59.1 Generalized enlarged lymph nodes (principal); I10 Essential (primary) hypertension
CPT/HCPCS: 71046; 99284

== ENCOUNTER 2018-09-01 09:50 | Emergency (ER) | payer MEDICAID ==
--- NOTE | 2018-09-01 11:01 | ER Document Report ---
ED General - General Chief Complaint: Leg Pain Stated Complaint: NOSE BLEED/FATIGUE Time Seen by Provider: 09/01/18 10:41 Mode of Arrival: Ambulatory Information source: Patient Notes: 33-year-old male presents emergency department with complaints of generalized fatigue, generalized weakness over the last 2 weeks. Patient states that he is also had multiple nosebleeds. He denies any medical problems. He is not on any medications. He denies any fever, chills, rhinorrhea, sore throat, cough, chest pain, shortness of breath, abdominal pain, nausea, vomiting, diarrhea, constipation. Patient states that he is having intermittent myalgias. TRAVEL OUTSIDE OF THE [place] IN LAST 30 DAYS: No - HPI Onset: Other - 2 weeks Onset/Duration: Gradual Quality of pain: No pain Severity: None Pain Level: Denies Associated symptoms: Weakness Exacerbated by: Denies Relieved by: Denies Similar symptoms previously: No Recently seen / treated by doctor: No - Related Data Allergies/Adverse Reactions: codeine [Codeine] Adverse Reaction (Intermediate, Verified 08/29/18 10:18) severe stomach pain tramadol HCl [From Ultram] Adverse Reaction (Intermediate, Verified 08/29/18 10: 18) severe stomach problems Past Medical History - General Information source: Patient - Social History Smoking Status: Current Every Day Smoker Family History: Reviewed & Not Pertinent - Past Medical History Cardiac Medical History: Reports: Hx Hypertension - MEDICATED, Hx Heart Murmur - MVP Denies: Hx Coronary Artery Disease, Hx Heart Attack Pulmonary Medical History: Reports: Hx Pneumonia - A BABY Denies: Hx Asthma, Hx Bronchitis, Hx COPD Neurological Medical History: Denies: Hx Cerebrovascular Accident, Hx Seizures Renal/ Medical History: Denies: Hx Peritoneal Dialysis GI Medical History: Reports: Hx Gastritis, Hx Gastroesophageal Reflux Disease, Hx Hiatal Hernia Musculoskeletal Medical History: Denies Hx Arthritis Psychiatric Medical History: Reports: Hx Anxiety, Hx Depression - anxiety Past Surgical History: Reports: Hx Orthopedic Surgery - club feet bilateral - Immunizations Hx Diphtheria, Pertussis, Tetanus Vaccination: Yes Review of Systems - Review of Systems Constitutional: Weakness EENT: No symptoms reported Cardiovascular: No symptoms reported Respiratory: No symptoms reported Gastrointestinal: No symptoms reported Genitourinary: No symptoms reported Male Genitourinary: No symptoms reported Musculoskeletal: No symptoms reported Skin: No symptoms reported Hematologic/Lymphatic: No symptoms reported Neurological/Psychological: No symptoms reported -: Yes All other systems reviewed and negative Physical Exam - Vital signs Vitals: Temp Pulse Resp BP Pulse Ox 97.8 F 78 14 125/89 H 99 09/01/18 09:58 09/01/18 09:58 09/01/18 09:58 09/01/18 09:58 09/01/18 09:58 - Notes Notes: PHYSICAL EXAMINATION: GENERAL: Well-appearing, well-nourished and in no acute distress. HEAD: Atraumatic, normocephalic. EYES: Pupils equal round and reactive to light, extraocular movements intact, sclera anicteric, conjunctiva are normal. ENT: Nares patent, oropharynx clear without exudates. Moist mucous membranes. NECK: Normal range of motion, supple without lymphadenopathy LUNGS: Breath sounds clear to auscultation bilaterally and equal. No wheezes rales or rhonchi. HEART: Regular rate and rhythm without murmurs ABDOMEN: Soft, nontender, nondistended abdomen. No guarding, no rebound. No masses appreciated. Musculoskeletal: Normal range of motion, no pitting or edema. No cyanosis. No calf tenderness to palpation. NEUROLOGICAL: Cranial nerves grossly intact. Normal speech, normal gait. Normal sensory, motor exams PSYCH: Normal mood, normal affect. SKIN: Warm, Dry, normal turgor, no rashes or lesions noted. Course - Re-evaluation Re-evalutation: 09/01/18 15:49 Labs obtained and are within normal limits. I discussed the results with the patient. I told him to follow-up with his primary care physician this week, to take [id number] medication as needed for symptom relief, and to return for any worsening symptoms. Patient is agreeable with plan of care. - Vital Signs Vital signs: Temp Pulse Resp BP Pulse Ox 98.5 F 68 16 120/75 100 09/01/18 14:46 09/01/18 14:46 09/01/18 14:46 09/01/18 14:46 09/01/18 14:46 - Laboratory Result Diagrams: 09/01/18 11:12 09/01/18 11:12 Laboratory results interpreted by me: 09/01/18 11:12 Total Bilirubin 5.2 H Discharge - Discharge Clinical Impression: Fatigue Qualifiers: Fatigue type: unspecified Qualified Code(s): R53.83 - Other fatigue Condition: Good Disposition: HOME, SELF-CARE Instructions: Fatigue ([facility]) Referrals: GAVI NIÑO MD [Primary Care Provider] - Follow up as needed
[2018-09-01 11:33] LABS: ABSOLUTE BASOPHILS # (AUTO) 0.1 10^3/uL (0.0-0.2); ABSOLUTE EOSINOPHILS # (AUTO) 0.1 10^3/uL (0.0-0.6); ABSOLUTE LYMPHOCYTES (AUTO) 1.3 10^3/uL (0.5-4.7); ABSOLUTE MONOCYTES (AUTO) 0.6 10^3/uL (0.1-1.4); ABSOLUTE NEUT (AUTO) 3.5 10^3/uL (1.7-8.2); BASOPHILS % (AUTO) 1.3 % (0-2); EOSINOPHILS % (AUTO) 0.9 % (0-6); HEMATOCRIT 46.3 % (37.9-51.0); HEMOGLOBIN 16.4 g/dL (13.5-17.0); LYMPHOCYTES % (AUTO) 23.7 % (13-45); MEAN CORPUSCULAR HEMOGLOBIN 31.2 pg (27.0-33.4); MEAN CORPUSCULAR HGB CONC 35.5 g/dL (32.0-36.0); MEAN CORPUSCULAR VOLUME 88 fl (80-97); MONOCYTES % (AUTO) 10.7 % (3-13); PLATELET COUNT 179 10^3/uL (150-450); RED BLOOD COUNT 5.27 10^6/uL (4.35-5.55); RED CELL DISTRIBUTION WIDTH 13.2 % (11.5-14.0); SEGMENTED NEUTROPHILS % (AUTO) 63.4 % (42-78); TOTAL CELLS COUNTED % (AUTO) 100 %; WHITE BLOOD COUNT 5.6 10^3/uL (4.0-10.5)
[2018-09-01 11:54] LABS: ALANINE AMINOTRANSFERASE 22 U/L (21-72); ALBUMIN 4.4 g/dL (3.5-5.0); ALKALINE PHOSPHATASE 58 U/L (38-126); ANION GAP 12 (5-19); ASPARTATE AMINO TRANSFERASE 22 U/L (17-59); BILIRUBIN,DIRECT 0.4 mg/dL (0.0-0.4); BILIRUBIN,TOTAL 5.2 mg/dL (0.2-1.3); BLOOD UREA NITROGEN 14 mg/dL (7-20); CALCIUM 9.5 mg/dL (8.4-10.2); CARBON DIOXIDE 30 mmol/L (22-30); CHLORIDE 102 mmol/L (98-107); GLUCOSE 90 mg/dL (75-110); POTASSIUM 4.2 mmol/L (3.6-5.0); SODIUM 144.1 mmol/L (137-145); TOTAL PROTEIN 7.3 g/dL (6.3-8.2)
[2018-09-01 12:59] LABS: APPEARANCE,URINE CLEAR; BILIRUBIN,URINE NEGATIVE (NEGATIVE); COLOR,URINE STRAW; GLUCOSE, URINE NEGATIVE (NEGATIVE); KETONES,URINE NEGATIVE (NEGATIVE); LEUKOCYTE ESTERASE,URINE NEGATIVE (NEGATIVE); NITRITE,URINE NEGATIVE (NEGATIVE); PROTEIN,URINE NEGATIVE (NEGATIVE); URINE SPECIFIC GRAVITY 1.005; UROBILINOGEN,URINE NEGATIVE mg/dL (<2.0)
[2018-09-01 14:46] VITALS: BP 120/75
== END 2018-09-01 14:48 | disposition home or self-care (01) ==
LOC: ER 09:50
DX: R53.83 Other fatigue (principal); R53.1 Weakness; R04.0 Epistaxis; M79.18 Myalgia, other site; F17.200 Nicotine dependence, unspecified, uncomplicated; I10 Essential (primary) hypertension
CPT/HCPCS: 36415; 80053; 81001; 85025; 99283

== ENCOUNTER 2018-09-05 05:31 | Day surgery (SDC) | payer MEDICAID ==
[2018-08-29 10:34] LABS: HEMATOCRIT 45.2 % (37.9-51.0); HEMOGLOBIN 15.8 g/dL (13.5-17.0); MEAN CORPUSCULAR HEMOGLOBIN 31.1 pg (27.0-33.4); MEAN CORPUSCULAR HGB CONC 34.9 g/dL (32.0-36.0); MEAN CORPUSCULAR VOLUME 89 fl (80-97); PLATELET COUNT 170 10^3/uL (150-450); RED BLOOD COUNT 5.09 10^6/uL (4.35-5.55); WHITE BLOOD COUNT 5.4 10^3/uL (4.0-10.5)
--- NOTE | 2018-08-29 13:04 | EKG REPORT ---
SEVERITY:- ABNORMAL ECG - SINUS RHYTHM NONSPECIFIC T ABNORMALITIES, ANT-LAT LEADS : Confirmed by: Nabeel Coleman MD 29-Aug-2018 13:03:12
[~2018-09-05 05:31] MED LIST: CEFAZOLIN 1 GM/D5W RTU 1 GM/50 ML RTUPB IV ONE; CEFAZOLIN 1 GM/D5W RTU 1 GM/50 ML RTUPB IV PRN; LACTATED RINGERS 1000 ML IV PRN; LIDOCAINE 0.5% INJ-PF (5 MG/ML) 50 ML SDV SUBCUT PRN
[2018-09-05] MEDS ORDERED: MIDAZOLAM 2 MG/2 ML INJ ONE (07:10)
[2018-09-05] MEDS ORDERED: FENTANYL CITRATE INJ/PF 100 MCG/2 ML AMPUL ONE ×2 (07:10→07:17)
[2018-09-05] MEDS ORDERED: ONDANSETRON HCL INJ/PF 4 MG/2 ML SDV ONE (07:10)
[2018-09-05] MEDS ORDERED: PROPOFOL INJ 200 MG/20 ML VIAL IV ONE (07:11)
[2018-09-05] MEDS ORDERED: HYDROMORPHONE HCL INJ/PF 2 MG/ML AMPULE ONE (07:11)
[2018-09-05] MEDS ORDERED: ACETAMINOPHEN 1,000 MG/100 ML RTUPB IV ONE (07:11)
[2018-09-05] MEDS ORDERED: LIDOCAINE 1%/EPINEPHRINE INJ 20 ML VIAL ONE (07:20)
[2018-09-05] MEDS ORDERED: MEPERIDINE HCL/PF INJ 25 MG/1 ML DISP.SYRIN IV PRN (08:06)
[2018-09-05] MEDS ORDERED: FENTANYL CITRATE INJ/PF 100 MCG/2 ML AMPUL IV PRN ×3 (08:06)
[2018-09-05] MEDS ORDERED: PROMETHAZINE HCL INJ 25 MG/1 ML VIAL IV PRN ×2 (08:06)
[2018-09-05] MEDS ORDERED: OXYCODONE-ACETAMINOPHEN 5-325 MG TABLET PO PRN ×2 (08:06)
[2018-09-05] MEDS ORDERED: DIPHENHYDRAMINE HCL 50 MG/ML VIAL IV PRN (08:06)
[2018-09-05] MEDS ORDERED: SUCCINYLCHOLINE CHLORIDE INJ 200 MG/10 ML VIAL ONE (08:20)
[2018-09-05] MEDS ORDERED: MICROFIBRILLAR COLLAGEN 1 GM PACK ONE (08:45)
[2018-09-05] MEDS ORDERED: MEPERIDINE HCL/PF INJ 25 MG/1 ML DISP.SYRIN ONE (08:47)
--- NOTE | 2018-09-05 09:04 | Discharge Summary ---
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 Return to clinic in approximately 1-2 weeks for a wound check. Referrals: GAVI NIÑO MD [Primary Care Provider] - Discharge Diet: As Tolerated Discharge Activity: No Lifting Over 10 Pounds, No Lifting/Push/Pulling Home Care Assistance: None Needed Report the Following to Your Physician Immediately: Shortness of Breath, Increase in Pain, Fever over 101 Degrees, Unusual Bleeding
--- NOTE | 2018-09-05 09:14 | Operative Report ---
Operative Report DATE OF SURGERY: 09/05/18 PREOPERATIVE DIAGNOSIS: Right supraclavicular lymph node POSTOPERATIVE DIAGNOSIS: Right supraclavicular arteriovenous malformation OPERATION: 1. Focused ultrasound of the right supraclavicular area. 2. Right supraclavicular soft tissue exploration SURGEON: ZOË RAY ANESTHESIA: GA TISSUE REMOVED OR ALTERED: None COMPLICATIONS: None ESTIMATED BLOOD LOSS: Minimal INTRAOPERATIVE FINDINGS: See below PROCEDURE: Patient was seen in the preop holding area by Dr. Ray. The right supraclavicular area is marked. Dr. Ray performed focused ultrasound of the right supraclavicular area with a variable frequency linear transducer. Findings were significant for a patent, possible subclavian vein, and subclavian artery. Identified soft tissue mass which was just deep to and posterior to the distal third of the clavicle was appreciated by the patient and Dr. Ray. On ultrasonography it appeared to be a soft tissue density somewhat triangular-shaped, separate from the subclavian artery and subclavian vein but just adjacent. Color flow Doppler did not demonstrate flow in this soft tissue structure. We elected to proceed with exploration and resection. The patient was taken to the operating room where general anesthesia was induced via LMA. The neck and head were externally rotated to the left. The right supraclavicular area chest wall and neck were prepped and draped sterile fashion. Surgical plan and surgical timeout were conducted. The skin was anesthetized just over the palpable density. Subcutaneous tissue, superficial fascia and upper clavicular fascia divided with a combination of sharp and gentle electrocautery dissection. We came down onto the soft tissue mass and began dissecting it out. It was approximately 2 x 3 cm. It was very adhesed to the surrounding tissue, particularly the deep surface superior side of the clavicle. I brought onto the field ultrasonography. Again the mass which at this point had a bluish hue to it and appeared to be vascular clinically did not show Doppler flow ultrasonographically. The subclavian artery and subclavian vein were just deep to the structure with the artery more cephalad and the vein more caudad. I continued dissecting more of this structure out. It had multiple small vascular tributaries. Again it was very adhesed to the surrounding tissue. Proximally two thirds of the structure was dissected out so I had good visualization of the structure. It did not resemble a lymph node or other soft tissue mass. 1 of these small tributaries was transected and the blood appeared to be of mixed arterial and venous oxygen concentration: It was clipped for occlusion. At this point I felt that we are dealing with an arteriovenous malformation. Why the structure did not straight Doppler flow with ultrasonography is beyond my comprehension. Nonetheless I did not feel resecting this otherwise benign structure would be in the patient's best interest. Clinically the history does with a fluctuating soft tissue density above the clavicle which is consistent with what we are seeing intraoperatively. We decided to close the wound. The wound was checked for bleeding there was none. Avitene was placed in the recesses of the wound and the wound closed in layers with 3-0 Vicryl 4-0 Vicryl benzoin and Steri-Strips. Patient tolerated procedure well, extubated taken recovery room stable condition.
[2018-09-05 11:09] VITALS: BP 118/77
== END 2018-09-05 10:05 | disposition home or self-care (01) ==
LOC: OROUT 05:31
PROVIDERS: ATTEND Surgery
DX: Q27.39 Arteriovenous malformation, other site (principal); R59.0 Localized enlarged lymph nodes; I10 Essential (primary) hypertension; Z88.5 Allergy status to narcotic agent; Z79.899 Other long term (current) drug therapy; I34.1 Nonrheumatic mitral (valve) prolapse; R00.0 Tachycardia, unspecified; F41.9 Anxiety disorder, unspecified; K21.9 Gastro-esophageal reflux disease without esophagitis; Z87.891 Personal history of nicotine dependence
CPT/HCPCS: 93005; 36415; 85027; 93010; 21550; J2250; J0690; J3010; J3490 ×2; J2175; J1170; J0330; J2405; J2704; J0131; 400

== ENCOUNTER 2018-10-11 01:44 | Emergency (ER) | payer MEDICAID ==
[2018-10-11 01:51] VITALS: BP 134/101
== END 2018-10-11 02:05 | disposition left against medical advice (07) ==
LOC: ER 01:44
DX: Z53.21 Procedure and treatment not carried out due to patient leaving prior to being seen by health care provider (principal)

== ENCOUNTER 2018-10-13 15:43 | Emergency (ER) | payer MEDICAID ==
--- NOTE | 2018-10-13 16:12 | ER Document Report ---
ED Medical Screen (RME) - General Chief Complaint: Shoulder Pain Stated Complaint: CLAVICLE PAIN Time Seen by Provider: 10/13/18 16:01 Notes: 33-year-old male patient complaining of a sharp stabbing pain in the right mid supraclavicular region. Patient had what was thought to be a lymph node operatively explored for excision on 09/05/2018. Intraoperatively he was found to have what was most likely an arteriovenous malformation. The AVM was left intact and the wound was closed. The patient now reports a severe sharp stabbing pain in the surgical region over the last few days which is getting worse and more frequent. I have greeted and performed a rapid initial assessment of this patient. A comprehensive ED assessment and evaluation of the patient, analysis of test results and completion of the medical decision making process will be conducted by additional ED providers. TRAVEL OUTSIDE OF THE [place] IN LAST 30 DAYS: No - Related Data Allergies/Adverse Reactions: codeine [Codeine] Adverse Reaction (Intermediate, Verified 10/13/18 16:02) severe stomach pain tramadol HCl [From Ultram] Adverse Reaction (Intermediate, Verified 10/13/18 16:02) severe stomach problems Past Medical History - Social History Chew tobacco use (# tins/day): No Frequency of alcohol use: None Drug Abuse: None - Past Medical History Cardiac Medical History: Reports: Hx Hypertension - MEDICATED, Hx Heart Murmur - MVP Denies: Hx Coronary Artery Disease, Hx Heart Attack Pulmonary Medical History: Reports: Hx Pneumonia - A BABY Denies: Hx Asthma, Hx Bronchitis, Hx COPD Neurological Medical History: Denies: Hx Cerebrovascular Accident, Hx Seizures Renal/ Medical History: Denies: Hx Peritoneal Dialysis GI Medical History: Reports: Hx Gastritis, Hx Gastroesophageal Reflux Disease, Hx Hiatal Hernia Musculoskeltal Medical History: Denies Hx Arthritis Psychiatric Medical History: Reports: Hx Anxiety, Hx Depression - anxiety Past Surgical History: Reports: Hx Orthopedic Surgery - club feet bilateral - Immunizations Hx Diphtheria, Pertussis, Tetanus Vaccination: Yes History of Influenza Vaccine for 07/2017 - 11/2017 Season: No Physical Exam - Vital signs Vitals: Temp Pulse Resp BP Pulse Ox 98.4 F 81 16 116/77 97 10/13/18 15:52 10/13/18 15:52 10/13/18 15:52 10/13/18 15:52 10/13/18 15:52 Course - Vital Signs Vital signs: Temp Pulse Resp BP Pulse Ox 98.4 F 81 16 116/77 97 10/13/18 15:52 10/13/18 15:52 10/13/18 15:52 10/13/18 15:52 10/13/18 15:52 Doctor's Discharge - Discharge Referrals: GAVI NIÑO MD [Primary Care Provider] - Follow up as needed
--- NOTE | 2018-10-13 19:16 | ER Document Report ---
ED General - General Chief Complaint: Shoulder Pain Stated Complaint: CLAVICLE PAIN Time Seen by Provider: 10/13/18 16:01 Notes: Patient is a 33-year-old male with a past medical history of hypertension and a known AVM above the right clavicle who presents with concerns of intermittent stabbing, shooting pain to the area of the AVM over the past 1 month that become more intense since having an exploratory surgery done to the area. She states that there was initially concern that this could be a lymph node, the area was dissected and revealed to be an AVM. He states he was subsequently told that there is nothing further to do but is continued to have intermittent pain to the area. He states that it does sometimes feel hard and swollen but then diminishes. Nothing seems to improve or worsen his symptoms. He is following with his primary care doctor regarding this issue. Nothing is new or different that prompted a visit to the emergency department today. Patient does relate substantial anxiety regarding this issue and finds that he is often focusing on possible complications, often read online what could happen in relation to the AVM. TRAVEL OUTSIDE OF THE [place] IN LAST 30 DAYS: No - Related Data Allergies/Adverse Reactions: codeine [Codeine] Adverse Reaction (Intermediate, Verified 10/13/18 16:02) severe stomach pain tramadol HCl [From Ultram] Adverse Reaction (Intermediate, Verified 10/13/18 16:02) severe stomach problems Past Medical History - General Information source: Patient - Social History Smoking Status: Never Smoker Chew tobacco use (# tins/day): No Frequency of alcohol use: None Drug Abuse: None Lives with: Family Family History: Reviewed & Not Pertinent Patient has suicidal ideation: No Patient has homicidal ideation: No - Past Medical History Cardiac Medical History: Reports: Hx Hypertension - MEDICATED, Hx Heart Murmur - MVP Denies: Hx Coronary Artery Disease, Hx Heart Attack Pulmonary Medical History: Reports: Hx Pneumonia - A BABY Denies: Hx Asthma, Hx Bronchitis, Hx COPD Neurological Medical History: Denies: Hx Cerebrovascular Accident, Hx Seizures Renal/ Medical History: Denies: Hx Peritoneal Dialysis GI Medical History: Reports: Hx Gastritis, Hx Gastroesophageal Reflux Disease, Hx Hiatal Hernia Musculoskeletal Medical History: Denies Hx Arthritis Psychiatric Medical History: Reports: Hx Anxiety, Hx Depression - anxiety Past Surgical History: Reports: Hx Orthopedic Surgery - club feet bilateral - Immunizations Hx Diphtheria, Pertussis, Tetanus Vaccination: Yes Review of Systems - Review of Systems Notes: Constitutional: Negative for fever. HENT: Negative for sore throat. Eyes: Negative for visual changes. Cardiovascular: Negative for chest pain. Respiratory: Negative for shortness of breath. Gastrointestinal: Negative for abdominal pain, vomiting or diarrhea. Genitourinary: Negative for dysuria. Musculoskeletal: Positive for pain above the left clavicle Skin: Negative for rash. Neurological: Negative for headaches, weakness or numbness. 10 point ROS negative except as marked above and in HPI. Physical Exam - Vital signs Vitals: Temp Pulse Resp BP Pulse Ox 98.4 F 81 16 116/77 97 10/13/18 15:52 10/13/18 15:52 10/13/18 15:52 10/13/18 15:52 10/13/18 15:52 Interpretation: Normal Notes: PHYSICAL EXAMINATION: GENERAL: Well-appearing, well-nourished and in no acute distress. HEAD: Atraumatic, normocephalic. EYES: Pupils equal round and reactive to light, extraocular movements intact, sclera anicteric, conjunctiva are normal. ENT: nares patent, oropharynx clear without exudates. Moist mucous membranes. NECK: Normal range of motion, supple without lymphadenopathy LUNGS: Breath sounds clear to auscultation bilaterally and equal. No wheezes rales or rhonchi. HEART: Regular rate and rhythm without murmurs ABDOMEN: Soft, nontender, normoactive bowel sounds. No guarding, no rebound. No masses appreciated. EXTREMITIES: Normal range of motion, no pitting or edema. No cyanosis. NEUROLOGICAL: No focal neurological deficits. Moves all extremities spontaneously and on command. PSYCH: Normal mood, normal affect. SKIN: Warm, Dry, normal turgor, mild swelling just above the right mid clavicle that is mildly tender to palpation Course - Re-evaluation Re-evalutation: 10/13/18 19:14 Patient presents with intermittent stabbing pain to an AV malformation above his right clavicle that has been ongoing for years although has been more painful since he had an exploratory surgery to definitively identify that it was an AVM in September 2018. The patient is extremely anxious, we did have an extended conversation regarding AV malformations, prognosis, and options for further therapy. I have referred him to vascular surgery and advised him that given that it is continued to cause him pain and concerned that he should consider having it surgically removed through a vascular surgeon. The patient is otherwise extremely well in appearance. There is no definitive significant swelling to the area, only the palpable AVM above the right mid clavicle. No swelling of the right upper extremity, capillary refill less than 1 second in all digits the right hand. At this time will discharge with return precautions and follow-up recommendations. Verbal discharge instructions given a the bedside and opportunity for questions given. Medication warnings reviewed. Patient is in agreement with this plan and has verbalized understanding of return precautions and the need for primary care follow-up in the next 24-72 hours. - Vital Signs Vital signs: Temp Pulse Resp BP Pulse Ox 98.3 F 71 16 121/86 H 99 10/13/18 19:22 10/13/18 19:22 10/13/18 19:22 10/13/18 19:22 10/13/18 19:22 Discharge - Discharge Clinical Impression: AVM (arteriovenous malformation), Pain of right clavicle Condition: Good Disposition: HOME, SELF-CARE Additional Instructions: Please follow-up with the vascular surgeon given that this area continues to cause you pain. As we discussed today, please try to not focus too much on remote possibilities of what could happen with your AV malformation. You may exercise is normal. You may travel as normal. Return if you develop sudden onset of severe pain to the area, rapid increased swelling of the area, discoloration of your arm or hand on the right side, difficulty breathing, or any other symptoms that are worrisome to you. Referrals: GAVI NIÑO MD [Primary Care Provider] - Follow up as needed LUIGI PATEL MD [ACTIVE STAFF] - Follow up in 3-5 days
[2018-10-13 19:24] VITALS: BP 121/86
== END 2018-10-13 19:22 | disposition home or self-care (01) ==
LOC: ER 15:43
DX: Q27.30 Arteriovenous malformation, site unspecified (principal); M25.511 Pain in right shoulder; I10 Essential (primary) hypertension
CPT/HCPCS: 99283

== ENCOUNTER 2018-11-13 20:00 | Emergency (ER) | payer MEDICAID ==
[2018-11-13 20:13] VITALS: BP 137/81
== END 2018-11-13 23:00 | disposition left against medical advice (07) ==
LOC: ER 20:00
DX: Z53.21 Procedure and treatment not carried out due to patient leaving prior to being seen by health care provider (principal)

== ENCOUNTER 2018-11-15 13:01 | Emergency (ER) | payer MEDICAID ==
[2018-11-15] MEDS ORDERED: KETOROLAC TROMETHAMINE 60 MG/2 ML SDV IM ONE (14:01)
--- NOTE | 2018-11-15 14:01 | ER Document Report ---
ED Medical Screen (RME) - General Chief Complaint: Headache Stated Complaint: HEADACHE Time Seen by Provider: 11/15/18 13:55 Primary Care Provider: GAVI NIÑO MD [Primary Care Provider] - Follow up as needed Notes: 33 years old male presents today with right subclavian pulsating mass giving rise to headache on and off. TRAVEL OUTSIDE OF THE [place] IN LAST 30 DAYS: No - Related Data Allergies/Adverse Reactions: codeine [Codeine] Adverse Reaction (Intermediate, Verified 11/15/18 13:02) severe stomach pain tramadol HCl [From Ultram] Adverse Reaction (Intermediate, Verified 11/15/18 13:02) severe stomach problems Past Medical History - Social History Chew tobacco use (# tins/day): No Frequency of alcohol use: None Drug Abuse: None - Past Medical History Cardiac Medical History: Reports: Hx Hypertension - MEDICATED, Hx Heart Murmur - MVP Denies: Hx Coronary Artery Disease, Hx Heart Attack Pulmonary Medical History: Reports: Hx Pneumonia - A BABY Denies: Hx Asthma, Hx Bronchitis, Hx COPD Neurological Medical History: Denies: Hx Cerebrovascular Accident, Hx Seizures Renal/ Medical History: Denies: Hx Peritoneal Dialysis GI Medical History: Reports: Hx Gastritis, Hx Gastroesophageal Reflux Disease, Hx Hiatal Hernia Musculoskeltal Medical History: Denies Hx Arthritis Psychiatric Medical History: Reports: Hx Anxiety, Hx Depression - anxiety Past Surgical History: Reports: Hx Orthopedic Surgery - club feet bilateral - Immunizations Hx Diphtheria, Pertussis, Tetanus Vaccination: Yes History of Influenza Vaccine for 07/2017 - 11/2017 Season: No Physical Exam - Vital signs Vitals: Temp Pulse Resp BP Pulse Ox 98.3 F 66 18 119/73 99 11/15/18 13:10 11/15/18 13:10 11/15/18 13:10 11/15/18 13:10 11/15/18 13:10 Course - Vital Signs Vital signs: Temp Pulse Resp BP Pulse Ox 98.3 F 66 18 119/73 99 11/15/18 13:10 11/15/18 13:10 11/15/18 13:10 11/15/18 13:10 11/15/18 13:10 Doctor's Discharge - Discharge Referrals: GAVI NIÑO MD [Primary Care Provider] - Follow up as needed
--- NOTE | 2018-11-15 15:52 | RADIOLOGY REPORT (SQ) ---
EXAM DESCRIPTION: ARTERIAL UPPER EXTREM UNILAT COMPLETED DATE/TIME: 11/15/2018 3:38 pm REASON FOR STUDY: RT SUBCLAVIAN PULSATING MASS COMPARISON: None. TECHNIQUE: Dynamic and static young scale and color images acquired of the right upper extremity asad william. Additional selected spectral images recorded. Images saved to PACS. LIMITATIONS: None. FINDINGS: RIGHT UPPER EXTREMITY: SUBCLAVIAN: Normal Doppler waveforms. No velocity elevation to suggest stenosis. AXILLARY: Normal Doppler waveforms. No velocity elevation to suggest stenosis. Normal color Doppler evaluation. BRACHIAL: Normal Doppler waveforms. No velocity elevation to suggest stenosis. Normal color Doppler evaluation. RADIAL: Normal Doppler waveforms. No velocity elevation to suggest stenosis. Normal color Doppler e valuation. ULNAR: Normal Doppler waveforms. No velocity elevation to suggest stenosis. Normal color Doppler ev aluation. OTHER: No other significant finding. IMPRESSION: Normal right upper extremity Doppler arterial examination. No evidence of aneurysm or o ther finding to explain pulsatile mass. Consider CT or MRI to further evaluate as directed by clinic al suspicion. TECHNICAL DOCUMENTATION: JOB ID: [id number] [employer]- All Rights Reserved Reading location - IP/workstation name: [email or web address]
--- NOTE | 2018-11-15 17:20 | ER Document Report ---
ED General - General Chief Complaint: Headache Stated Complaint: HEADACHE Time Seen by Provider: 11/15/18 13:55 Primary Care Provider: GAVI NIÑO MD [Primary Care Provider] - Follow up as needed Notes: Patient is a 33-year-old male who presents the emergency department with multiple vague complaints today. He reports pain in the neck and had that is been intermittent over the last 5 days. He also reports that he has had a AVM to the right side and states that sometimes he feels pain during physical activity near the subclavian. Patient has been seen here multiple times for similar symptoms. TRAVEL OUTSIDE OF THE [place] IN LAST 30 DAYS: No - Related Data Allergies/Adverse Reactions: codeine [Codeine] Adverse Reaction (Intermediate, Verified 11/15/18 13:02) severe stomach pain tramadol HCl [From Ultram] Adverse Reaction (Intermediate, Verified 11/15/18 13:02) severe stomach problems Past Medical History - General Information source: Patient - Social History Smoking Status: Never Smoker Chew tobacco use (# tins/day): No Frequency of alcohol use: None Drug Abuse: None Family History: Reviewed & Not Pertinent Patient has suicidal ideation: No Patient has homicidal ideation: No - Past Medical History Cardiac Medical History: Reports: Hx Hypertension - MEDICATED, Hx Heart Murmur - MVP Denies: Hx Coronary Artery Disease, Hx Heart Attack Pulmonary Medical History: Reports: Hx Pneumonia - A BABY Denies: Hx Asthma, Hx Bronchitis, Hx COPD Neurological Medical History: Denies: Hx Cerebrovascular Accident, Hx Seizures Renal/ Medical History: Denies: Hx Peritoneal Dialysis GI Medical History: Reports: Hx Gastritis, Hx Gastroesophageal Reflux Disease, Hx Hiatal Hernia Musculoskeletal Medical History: Denies Hx Arthritis Psychiatric Medical History: Reports: Hx Anxiety, Hx Depression - anxiety Past Surgical History: Reports: Hx Orthopedic Surgery - club feet bilateral - Immunizations Hx Diphtheria, Pertussis, Tetanus Vaccination: Yes Review of Systems - Review of Systems Constitutional: No symptoms reported EENT: No symptoms reported Cardiovascular: No symptoms reported Respiratory: No symptoms reported Gastrointestinal: No symptoms reported Genitourinary: No symptoms reported Male Genitourinary: No symptoms reported Musculoskeletal: See HPI Skin: No symptoms reported Hematologic/Lymphatic: No symptoms reported Neurological/Psychological: See HPI Physical Exam - Vital signs Vitals: Temp Pulse Resp BP Pulse Ox 98.3 F 66 18 119/73 99 02/14/19 13:10 11/15/18 13:10 11/15/18 13:10 11/15/18 13:10 11/15/18 13:10 - Notes Notes: PHYSICAL EXAMINATION: GENERAL: Well-appearing, well-nourished and in no acute distress. HEAD: Atraumatic, normocephalic. EYES: Pupils equal round extraocular movements intact, conjunctiva are normal. ENT: Nares patent NECK: Normal range of motion LUNGS: No respiratory distress Musculoskeletal: Normal range of motion NEUROLOGICAL: Normal speech, normal gait. PSYCH: Normal mood, normal affect. SKIN: Warm, Dry, normal turgor, no rashes or lesions noted. Surgical incision noted to right subclavian area, no surrounding erythema, appears to be healing well. No palpable mass. Course - Re-evaluation Re-evalutation: Ultrasound was ordered by provider in triage which was negative for any acute findings. There is no palpable mass at this time to the right subclavian area. Patient does have a recent surgical incision to this area. Patient reports he has been trying to get back to his normal exercise routine and I feel patient may have overdone this. Encourage patient to take it a little slower as his surgery was not that long ago. Patient verbalizes understanding of same and agreeable with plan. I encourage patient to follow-up with either his PCP or his surgeon. - Vital Signs Vital signs: Temp Pulse Resp BP Pulse Ox 98.5 F 64 16 118/72 99 11/15/18 17:17 11/15/18 17:17 11/15/18 17:17 11/15/18 17:17 11/15/18 17:17 Discharge - Discharge Clinical Impression: right subclavian pain, post surgical pain Condition: Stable Disposition: HOME, SELF-CARE Additional Instructions: The upper extremity ultrasound that was done today was normal. There was no acute findings or any other thing life-threatening than on the scan. Please follow-up with both your primary care and your surgeon. You may want to consider taking it easy and instead of starting off with full-blown exercises start off slowly. You did just have surgery and it does take some time to completely heal from it. Referrals: GAVI NIÑO MD [Primary Care Provider] - Follow up as needed
[2018-11-15 17:21] VITALS: BP 118/72
== END 2018-11-15 17:17 | disposition home or self-care (01) ==
LOC: ER 13:01
DX: G89.18 Other acute postprocedural pain (principal); R07.9 Chest pain, unspecified; M54.2 Cervicalgia; I10 Essential (primary) hypertension
CPT/HCPCS: 93931; 99284

== ENCOUNTER 2018-11-24 12:53 | Emergency (ER) | payer MEDICAID ==
--- NOTE | 2018-11-24 13:20 | ER Document Report ---
ED Medical Screen (RME) - General Chief Complaint: Medical Complaint Stated Complaint: RIGHT CLAVICAL AREA PAIN Time Seen by Provider: 11/24/18 13:03 Primary Care Provider: GAVI NIÑO MD [Primary Care Provider] - Follow up as needed Notes: Patient is a [] that presents to the emergency department for chief complaint of []. []. ROS: Other than noted above, the 12 point review of systems was reviewed with the patient and were negative, all pertinent findings are included in the HPI. PHYSICAL EXAMINATION: Vital signs reviewed. GENERAL: Well-appearing, well-nourished and in no acute distress. HEAD: Atraumatic, normocephalic. EYES: Pupils equal round extraocular movements intact, conjunctiva are normal. ENT: Nares patent NECK: Normal range of motion, palpable pulsatile lesion just superior to the right clavicle, does not appear to be tender to palpate CV: Heart regular rate and rhythm LUNGS: No respiratory distress Musculoskeletal: Normal range of motion NEUROLOGICAL: Normal speech PSYCH: Normal mood, normal affect. MDM: Patient seen and examined for rapid initial assessment. Vital signs reviewed. A comprehensive ED assessment and evaluation of the patient, analysis of test results and completion of the medical decision making process will be conducted by additional ED providers. *Note is created using voice recognition software and may contain spelling, syntax or grammatical errors. TRAVEL OUTSIDE OF THE [place] IN LAST 30 DAYS: No - Related Data Allergies/Adverse Reactions: codeine [Codeine] Adverse Reaction (Intermediate, Verified 11/24/18 12:54) severe stomach pain tramadol HCl [From Ultram] Adverse Reaction (Intermediate, Verified 11/24/18 12:54) severe stomach problems Past Medical History - Social History Chew tobacco use (# tins/day): No Frequency of alcohol use: None Drug Abuse: None - Past Medical History Cardiac Medical History: Reports: Hx Hypertension - MEDICATED, Hx Heart Murmur - MVP Denies: Hx Coronary Artery Disease, Hx Heart Attack Pulmonary Medical History: Reports: Hx Pneumonia - A BABY Denies: Hx Asthma, Hx Bronchitis, Hx COPD Neurological Medical History: Denies: Hx Cerebrovascular Accident, Hx Seizures Renal/ Medical History: Denies: Hx Peritoneal Dialysis GI Medical History: Reports: Hx Gastritis, Hx Gastroesophageal Reflux Disease, Hx Hiatal Hernia Musculoskeltal Medical History: Denies Hx Arthritis Psychiatric Medical History: Reports: Hx Anxiety, Hx Depression - anxiety Past Surgical History: Reports: Hx Orthopedic Surgery - club feet bilateral - Immunizations Hx Diphtheria, Pertussis, Tetanus Vaccination: Yes History of Influenza Vaccine for 07/2017 - 11/2017 Season: No Physical Exam - Vital signs Vitals: Temp Pulse Resp BP Pulse Ox 98.4 F 69 16 117/66 98 11/24/18 13:02 11/24/18 13:02 11/24/18 13:02 11/24/18 13:02 11/24/18 13:02 Course - Vital Signs Vital signs: Temp Pulse Resp BP Pulse Ox 98.4 F 69 16 117/66 98 11/24/18 13:02 11/24/18 13:02 11/24/18 13:02 11/24/18 13:02 11/24/18 13:02 Doctor's Discharge - Discharge Referrals: GAVI NIÑO MD [Primary Care Provider] - Follow up as needed
[2018-11-24 13:59] LABS: ABSOLUTE BASOPHILS # (AUTO) 0.1 10^3/uL (0.0-0.2); ABSOLUTE LYMPHOCYTES (AUTO) 1.2 10^3/uL (0.5-4.7); ABSOLUTE MONOCYTES (AUTO) 0.7 10^3/uL (0.1-1.4); ABSOLUTE NEUT (AUTO) 5.5 10^3/uL (1.7-8.2); BASOPHILS % (AUTO) 0.9 % (0-2); EOSINOPHILS % (AUTO) 0.6 % (0-6); HEMATOCRIT 45.8 % (37.9-51.0); HEMOGLOBIN 15.9 g/dL (13.5-17.0); LYMPHOCYTES % (AUTO) 15.5 % (13-45); MEAN CORPUSCULAR HEMOGLOBIN 31.4 pg (27.0-33.4); MEAN CORPUSCULAR HGB CONC 34.8 g/dL (32.0-36.0); MEAN CORPUSCULAR VOLUME 90 fl (80-97); MONOCYTES % (AUTO) 9.8 % (3-13); RED BLOOD COUNT 5.08 10^6/uL (4.35-5.55); RED CELL DISTRIBUTION WIDTH 13.2 % (11.5-14.0); SEGMENTED NEUTROPHILS % (AUTO) 73.2 % (42-78); TOTAL CELLS COUNTED % (AUTO) 100 %; WHITE BLOOD COUNT 7.5 10^3/uL (4.0-10.5)
[2018-11-24 14:11] LABS: ANION GAP 8 (5-19); BLOOD UREA NITROGEN 13 mg/dL (7-20); CALCIUM 9.5 mg/dL (8.4-10.2); CARBON DIOXIDE 29 mmol/L (22-30); CHLORIDE 104 mmol/L (98-107); GLUCOSE 95 mg/dL (75-110); POTASSIUM 4.7 mmol/L (3.6-5.0); SODIUM 141.4 mmol/L (137-145)
[2018-11-24 14:19] LABS: PLATELET COUNT 156 10^3/uL (150-450)
--- NOTE | 2018-11-24 16:05 | RADIOLOGY REPORT (SQ) ---
EXAM DESCRIPTION: CTA NECK COMPLETED DATE/TIME: 11/24/2018 3:50 pm REASON FOR STUDY: hx R supraclavicular AVM, neck and head pain COMPARISON: None. TECHNIQUE: Axial dynamic scanning technique with dynamic contrast enhancement through the extra-aircraft engine technician nial carotid and vertebral arteries. Multiplanar reconstruction. 3-D MIPS and Volume-rendered imag es acquired at the workstation and saved to PACS. Images are reviewed in soft tissue, bone, lung w indows. All CT scanners at this facility use dose modulation, iterative reconstruction, and/or weight based d osing when appropriate to reduce radiation dose to as low as reasonably achievable (ALARA). [facility]: Dose Right [facility]: CareDose [facility]: Dose Right [facility]: Teradose 4D [facility]: Wipster CONTRAST TYPE AND DOSE: contrast/concentration: Isovue 350.00 mg/ml; Total Contrast Delivered: 70.0 ml; Total Saline Delivered: 75.0 ml RENAL FUNCTION: GFR > 60. LIMITATIONS: None. FINDINGS: AORTIC ARCH: Normal three-vessel origin. Bilateral subclavian arteries are patent. No d issection. RIGHT CAROTIDS: Patent common, internal and external carotid arteries without suggestion of significa nt stenosis or irregular plaque. No dissection. RIGHT VERTEBRAL: Patent. No dissection. LEFT CAROTIDS: Patent common, internal and external carotid arteries without suggestion of significan t stenosis or irregular plaque. No dissection. LEFT VERTEBRAL: Patent. No dissection. OTHER: No other significant finding. OTHER: 3-D reconstructions confirm findings. IMPRESSION: NORMAL CTA OF THE EXTRA-CRANIAL CAROTID AND VERTEBRAL ARTERIES. COMMENT: Quality ID #[id number]: Measurements of distal internal carotid diameter were used as the denomina tor for stenosis measurement. TECHNICAL DOCUMENTATION: JOB ID: [id number] Quality ID # [id number]: Final reports with documentation of one or more dose reduction techniques (e.g., Au tomated exposure control, adjustment of the mA and/or kV according to patient size, use of iterative reconstruction technique) 2010 [employer]- All Rights Reserved Reading location - IP/workstation name: [email or web address]
[2018-11-24] MEDS ORDERED: KETOROLAC TROMETHAMINE INJ/PF 30 MG/1 ML SDV IV ONE (16:49)
--- NOTE | 2018-11-24 17:32 | ER Document Report ---
ED General - General Chief Complaint: Medical Complaint Stated Complaint: RIGHT CLAVICAL AREA PAIN Time Seen by Provider: 11/24/18 13:03 Primary Care Provider: GAVI NIÑO MD [ACTIVE STAFF] - Follow up as needed ZOË THAYER MD [ACTIVE STAFF] - Follow up in 3-5 days Mode of Arrival: Ambulatory Information source: Patient, [facility] Records Notes: 33-year-old presents with complaints of right shoulder and right superior clavicular pain that has been ongoing for several months. Patient has been seen approximately 5 times in the last 2 months for similar symptoms. States that he underwent a surgery for removal of what they thought was a lymph node but during the surgery it became apparent that it was vascular and surgery was discontinued. Patient was told by his surgeon that he could resume exercise but he states after doing push-ups recently he noticed more pain at that area and now states it has migrated to his shoulder. Patient denies any arm swelling, shortness of breath, fever, chills, nausea, vomiting, chest pain. 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 TRAVEL OUTSIDE OF THE [place] IN LAST 30 DAYS: No - HPI Onset: Other Onset/Duration: Intermittent Quality of pain: Throbbing Severity: Mild Associated symptoms: denies: Chest pain, Fever, Headache, Nausea, Vomiting, Shortness of breath Exacerbated by: Other - Exercise Relieved by: Other - Rest Similar symptoms previously: Yes Recently seen / treated by doctor: Yes - Related Data Allergies/Adverse Reactions: codeine [Codeine] Adverse Reaction (Intermediate, Verified 11/24/18 12:54) severe stomach pain tramadol HCl [From Ultram] Adverse Reaction (Intermediate, Verified 11/24/18 12:54) severe stomach problems Past Medical History - General Information source: POA - Power of [employer], [facility] Records - Social History Smoking Status: Never Smoker Chew tobacco use (# tins/day): No Frequency of alcohol use: None Drug Abuse: None Lives with: Family Family History: Reviewed & Not Pertinent Patient has suicidal ideation: No Patient has homicidal ideation: No - Past Medical History Cardiac Medical History: Reports: Hx Hypertension - MEDICATED, Hx Heart Murmur - MVP Denies: Hx Coronary Artery Disease, Hx Heart Attack Pulmonary Medical History: Reports: Hx Pneumonia - A BABY Denies: Hx Asthma, Hx Bronchitis, Hx COPD Neurological Medical History: Denies: Hx Cerebrovascular Accident, Hx Seizures Renal/ Medical History: Denies: Hx Peritoneal Dialysis GI Medical History: Reports: Hx Gastritis, Hx Gastroesophageal Reflux Disease, Hx Hiatal Hernia Musculoskeletal Medical History: Denies Hx Arthritis Psychiatric Medical History: Reports: Hx Anxiety, Hx Depression - anxiety Past Surgical History: Reports: Hx Orthopedic Surgery - club feet bilateral - Immunizations Hx Diphtheria, Pertussis, Tetanus Vaccination: Yes Review of Systems - Review of Systems Notes: REVIEW OF SYSTEMS: CONSTITUTIONAL : Denies fever, chills, or sweats. Denies recent illness. Denies weight loss, recent hospitalizations. EENT: Denies visual changes, eye pain. Denies sore throat, oral lesions, difficulty swallowing. CARDIOVASCULAR: Denies chest pain. Denies palpitations. Denies lower extremity edema. RESPIRATORY: Denies cough. Denies shortness of breath, wheezing. GASTROINTESTINAL: Denies abdominal pain or distention. Denies nausea, vomiting, or diarrhea. Denies blood in vomitus, stools, or per rectum. Denies black, tarry stools. Denies constipation. GENITOURINARY: Denies difficulty urinating, painful urination, frequency, blood in urine, testicular pain or penile discharge. MUSCULOSKELETAL: Denies back or neck pain or stiffness. Denies joint swelling. SKIN: Denies rash, lesions or sores. HEMATOLOGIC : Denies easy bruising or bleeding. LYMPHATIC: Denies swollen glands. NEUROLOGICAL: Denies confusion or altered mental status. Denies loss of consciousness. Denies dizziness or lightheadedness. Denies headache. Denies weakness or paralysis. Denies problems difficulty with ambulation, slurred speech. Denies sensory loss, numbness, or tingling. Denies seizures. PSYCHIATRIC: Denies anxiety or stress. Denies depression, suicidal ideation, or Physical Exam - Vital signs Vitals: Temp Pulse Resp BP Pulse Ox 98.4 F 69 16 117/66 98 11/24/18 13:02 11/24/18 13:02 11/24/18 13:02 11/24/18 13:02 11/24/18 13:02 Interpretation: Normal - Notes Notes: PHYSICAL EXAMINATION: GENERAL: Well-appearing, well-nourished and in no acute distress. HEAD: Atraumatic, normocephalic. EYES: Pupils equal round and reactive to light, extraocular movements intact, sclera anicteric, conjunctiva are normal. ENT: Nares patent, oropharynx clear without exudates. Moist mucous membranes. NECK: Normal range of motion, supple without lymphadenopathy LUNGS: Breath sounds clear to auscultation bilaterally and equal. No wheezes rales or rhonchi. HEART: Regular rate and rhythm without murmurs ABDOMEN: Soft, nontender, nondistended abdomen. No guarding, no rebound. No masses appreciated. Musculoskeletal: Normal range of motion, no pitting or edema. No cyanosis. Mild pulsatile area just superior to his right clavicle. Patient has full range of motion of the right shoulder. Radial pulse intact. NEUROLOGICAL: Cranial nerves grossly intact. Normal speech, normal gait. Normal sensory, motor exams PSYCH: Normal mood, normal affect. SKIN: Warm, Dry, normal turgor, no rashes or lesions noted. Course - Re-evaluation Re-evalutation: Laboratory 11/24/18 11/24/18 13:42 13:42 WBC 7.5 RBC 5.08 Hgb 15.9 Hct 45.8 MCV 90 MCH 31.4 MCHC 34.8 RDW 13.2 Plt Count 156 Seg Neutrophils % 73.2 Lymphocytes % 15.5 Monocytes % 9.8 Eosinophils % 0.6 Basophils % 0.9 Absolute Neutrophils 5.5 Absolute Lymphocytes 1.2 Absolute Monocytes 0.7 Absolute Eosinophils 0.0 Absolute Basophils 0.1 Sodium 141.4 Potassium 4.7 Chloride 104 Carbon Dioxide 29 Anion Gap 8 BUN 13 Creatinine 0.89 Est GFR ( Amer) > 60 Est GFR (Non-Af Amer) > 60 Glucose 95 Calcium 9.5 Neck CTA 11/24/18 13:19 IMPRESSION: NORMAL CTA OF THE EXTRA-CRANIAL CAROTID AND VERTEBRAL ARTERIES. Temp Pulse Resp BP Pulse Ox 98.4 F 78 16 118/75 100 11/24/18 13:02 11/24/18 17:47 11/24/18 17:47 11/24/18 17:47 11/24/18 17:47 33-year-old male presents for the fifth time in 2 months for pain in his right shoulder and right supraclavicular area. Vital signs reviewed and within normal limits. Patient does not appear toxic or dehydrated. He is in no acute distress. CTA of the neck was performed and within normal limits. I did specifically call the radiologist to discuss AVM. He states that the area is difficult to assess due to contrast bolus timing but he can tell me that there is no extravasation of contrast in that area. Op note was reviewed, patient was reassured. He was also encouraged to keep his upcoming vascular surgery appointment. Patient declining any pain medications. Patient was evaluated and treated as appropriate for the patient's presenting symptoms and complaint, with consideration of any critical or life threatening conditions that may be associated with their obtained history and exam as noted above. All results were discussed with patient with patient provided the opportunity to ask questions, and express concerns. Patient was educated on treatments based on their presumed diagnosis as noted above. At this time we will discharge the patient with return precautions and follow-up recommendations. Verbal discharge instructions given a the bedside. Medication warnings reviewed. Patient is in agreement with this plan and has verbalized understanding of return precautions. After careful consideration I feel that that patient can be safely discharged from the emergency department, they were advised to followup with a primary care physician in 2-3 days. Dictation on this chart was performed using voice recognition software and may result in unintended grammatical, spelling, syntax or errors. 11/24/18 23:04 OP Note reviewed: I brought onto the field ultrasonography. Again the mass which at this point had a bluish hue to it and appeared to be vascular clinically did not show Doppler flow ultrasonographically. The subclavian artery and subclavian vein were just deep to the structure with the artery more cephalad and the vein more caudad. I continued dissecting more of this structure out. It had multiple small vascular tributaries. Again it was very adhesed to the surrounding tissue. Proximally two thirds of the structure was dissected out so I had good visualization of the structure. It did not resemble a lymph node or other soft tissue mass. 1 of these small tributaries was transected and the blood appeared to be of mixed arterial and venous oxygen concentration: It was clipped for occlusion. At this point I felt that we are dealing with an arteriovenous malformation. Why the structure did not straight Doppler flow with ultrasonography is beyond my comprehension. Nonetheless I did not feel resecting this otherwise benign structure would be in the patient's best interest. Clinically the history does with a fluctuating soft tissue density above the clavicle which is consistent with what we are seeing intraoperatively. We decided to close the wound. The wound was checked for bleeding there was none. Avitene was placed in the recesses of the wound and the wound closed in layers with 3-0 Vicryl 4-0 Vicryl benzoin and Steri-Strips. 11/25/18 07:38 - Vital Signs Vital signs: Temp Pulse Resp BP Pulse Ox 98.4 F 78 16 118/75 100 11/24/18 13:02 11/24/18 17:47 11/24/18 17:47 11/24/18 17:47 11/24/18 17:47 - Laboratory Result Diagrams: 11/24/18 13:42 11/24/18 13:42 - Diagnostic Test Radiology reviewed: Image reviewed, Reports reviewed Discharge - Discharge Clinical Impression: Right upper limb pain, History of right upper extremity AVM Condition: Good Disposition: HOME, SELF-CARE Instructions: Arm Pain, Nonspecific ([facility]), Shoulder Injury ([facility]) Additional Instructions: Please follow-up with vascular surgery as instructed. Referrals: GAVI NIÑO MD [ACTIVE STAFF] - Follow up as needed ZOË THAYER MD [ACTIVE STAFF] - Follow up in 3-5 days
[2018-11-24 17:47] VITALS: BP 118/75
== END 2018-11-24 17:48 | disposition home or self-care (01) ==
LOC: ER 12:53
DX: Q27.39 Arteriovenous malformation, other site (principal); M25.511 Pain in right shoulder; I10 Essential (primary) hypertension; Z86.79 Personal history of other diseases of the circulatory system
CPT/HCPCS: 36415; 70498; 80048; 85025; 99284

== ENCOUNTER → 2019-04-26 | Outpatient (CLI) | payer MEDICAID ==
--- NOTE | 2019-04-26 11:53 | RADIOLOGY REPORT (SQ) ---
EXAM DESCRIPTION: ANKLE LEFT COMPLETE COMPLETED DATE/TIME: 04/26/2019 11:18 am REASON FOR STUDY: ACUTE LEFT ANKLE PAIN (M25.572) M25.572 PAIN IN LEFT ANKLE AND JOINTS OF LEFT KAYLAN T COMPARISON: None. NUMBER OF VIEWS: Three views. TECHNIQUE: AP, lateral, and oblique radiographic images acquired of the left ankle. LIMITATIONS: None. FINDINGS: MINERALIZATION: Normal. BONES: No acute fracture or dislocation. No worrisome bone lesions. JOINTS: No effusions. SOFT TISSUES: No soft tissue swelling. No foreign body. OTHER: No other significant finding. IMPRESSION: NEGATIVE STUDY OF THE LEFT ANKLE. NO RADIOGRAPHIC EVIDENCE OF ACUTE INJURY. TECHNICAL DOCUMENTATION: JOB ID: [id number] [employer]- All Rights Reserved Reading location - IP/workstation name: [email or web address]
== END ==
LOC: RAD 11:01
PROVIDERS: ATTEND Nurse Practitioner Family
DX: M25.572 Pain in left ankle and joints of left foot (principal)

== ENCOUNTER 2019-05-11 04:48 | Emergency (ER) | payer MEDICAID ==
--- NOTE | 2019-05-11 06:56 | ER Document Report ---
ED General - General Chief Complaint: Anxiety Stated Complaint: ANXIETY Time Seen by Provider: 05/11/19 06:10 Primary Care Provider: ARDEN ALEXIS MD [Primary Care Provider] - Follow up as needed TRAVEL OUTSIDE OF THE [place] IN LAST 30 DAYS: No - HPI Notes: Patient is a 34-year-old male who presents to the emergency department for evaluation of palpitations, sensation that his heart is racing, possible anxiety. The patient states he has had similar symptoms in the past. He states he believes is associated with GI upset. Yesterday, shortly after eating a [employer] sandwich with fredy, the patient began to experience increased palpitations, skipped beats, and heart racing. He states later, while having intercourse with his girlfriend, his heart raced again. He became concerned, believes that something more serious was happening. He started to get fingertip numbness. His symptoms resolved with some rest. He denied any associated chest pain or shortness of breath. - Related Data Allergies/Adverse Reactions: codeine [Codeine] Adverse Reaction (Intermediate, Verified 11/24/18 12:54) severe stomach pain tramadol HCl [From Ultram] Adverse Reaction (Intermediate, Verified 11/24/18 12:54) severe stomach problems Home Medications: Toprol-XL Past Medical History - General Information source: Patient - Social History Smoking Status: Former Smoker Family History: Reviewed & Not Pertinent Patient has suicidal ideation: No Patient has homicidal ideation: No - Past Medical History Cardiac Medical History: Reports: Hx Hypertension - MEDICATED, Hx Heart Murmur - MVP Denies: Hx Coronary Artery Disease, Hx Heart Attack Pulmonary Medical History: Reports: Hx Pneumonia - A BABY Denies: Hx Asthma, Hx Bronchitis, Hx COPD Neurological Medical History: Reports: Hx Migraine. Denies: Hx Cerebrovascular Accident, Hx Seizures Renal/ Medical History: Denies: Hx Peritoneal Dialysis GI Medical History: Reports: Hx Gastritis, Hx Gastroesophageal Reflux Disease, Hx Hiatal Hernia Musculoskeletal Medical History: Denies Hx Arthritis Psychiatric Medical History: Reports: Hx Anxiety, Hx Depression - anxiety Past Surgical History: Reports: Hx Orthopedic Surgery - club feet bilateral - Immunizations Hx Diphtheria, Pertussis, Tetanus Vaccination: Yes Review of Systems - Review of Systems Constitutional: No symptoms reported EENT: No symptoms reported Cardiovascular: See HPI Respiratory: No symptoms reported Gastrointestinal: See HPI Genitourinary: No symptoms reported Musculoskeletal: No symptoms reported Skin: No symptoms reported Neurological/Psychological: No symptoms reported Physical Exam - Vital signs Vitals: Resp BP 14 126/79 H 05/11/19 05:04 05/11/19 05:04 - Notes Notes: Is a very pleasant 34-year-old male, appears his stated age, no acute distress. He is anxious in appearance but cooperative with examiner. Vital signs reviewed, please refer to chart. Head is normocephalic, atraumatic. Pupils equal round, reactive to light. Neck is supple without meningismus. Heart is regular rate and rhythm. Lungs are clear to auscultation bilaterally. Abdomen is soft, nontender, normoactive bowel sounds throughout. Extremities without cyanosis, clubbing. Posterior calves are nontender. Peripheral pulses are equal. Skin is warm and dry. Patient is awake, alert, neurological exam is nonfocal. Course - Re-evaluation Re-evalutation: 05/11/19 07:57 Patient presents to the emergency department for evaluation of palpitations and sensation that his heart is been racing. He states that stomach upset has caused this in the past. He has a history of hiatal hernia, ate jalapeno pep pers, which seemed to prompt his symptoms. I reassured him that an elevated heart rate during sexual intercourse is of no significant concern. He stated his heart rate was in the 130s. In the absence of chest pain or difficulty breathing, this is certainly a reasonable exertional heart rate. I strongly encouraged him to avoid spicy and acidic foods. I told him he needs to consider going back on medication for his hiatal hernia. He voiced understanding. Electrolytes, magnesium unremarkable. TSH pending, but I am not expecting a significantly abnormal result. If normal, patient is to follow-up with his primary care provider. Return to the ED with worsening or new concerning symptoms of any sort. 05/11/19 08:18 TSH normal. Electrolytes magnesium normal. Patient told to avoid spicy foods. Encouraged to start back on medication for stomach acid. Will write a prescription for Zantac. He is to follow-up with primary care, return to the ED with worsening or new concerning symptoms of any sort. - Vital Signs Vital signs: Temp Pulse Resp BP Pulse Ox 16 125/82 97 05/11/19 07:01 05/11/19 07:01 05/11/19 07:01 - Laboratory Result Diagrams: 05/11/19 07:07 - EKG Interpretation by Me Additional EKG results interpreted by me: 05/11/19 07:58 Sinus mechanism with a rate of 88 bpm. Normal axis and intervals. Nonspecific ST changes anteriorly consistent with early repolarization. No change when compared to prior study of August 2018. Discharge - Discharge Clinical Impression: Palpitations, Anxiety Condition: Stable Disposition: HOME, SELF-CARE Instructions: Anxiety ([facility]), Palpitations (Irregular or Rapid Heartrate) ([facility]) Additional Instructions: Avoid spicy foods as discussed. Follow-up with primary care in 1 to 2 weeks. Your thyroid studies, electrolyte, magnesium are unremarkable here today. Start Zantac for your hiatal hernia. Return to the emergency department with worsening or new concerning symptoms of any sort. Referrals: ARDEN ALEXIS MD [Primary Care Provider] - Follow up as needed
[2019-05-11 07:35] LABS: ANION GAP 8 (5-19); BLOOD UREA NITROGEN 11 mg/dL (7-20); CALCIUM 9.4 mg/dL (8.4-10.2); CARBON DIOXIDE 26 mmol/L (22-30); CHLORIDE 103 mmol/L (98-107); GLUCOSE 88 mg/dL (75-110); POTASSIUM 3.9 mmol/L (3.6-5.0)
[2019-05-11 08:40] VITALS: BP 105/72
== END 2019-05-11 08:42 | disposition home or self-care (01) ==
LOC: ER 04:48
DX: R00.2 Palpitations (principal); F41.9 Anxiety disorder, unspecified; Z88.6 Allergy status to analgesic agent
CPT/HCPCS: 36415; 80048; 83735; 84443; 99283

== ENCOUNTER 2020-03-14 16:45 | Emergency (ER) | payer MEDICAID ==
--- NOTE | 2020-03-14 17:34 | ER Document Report ---
ED Medical Screen (RME) - General Chief Complaint: Palpitations Stated Complaint: DIZZINESS,ANXIOUS Time Seen by Provider: 03/14/20 17:31 Primary Care Provider: ARDEN ALEXIS MD [Primary Care Provider] - Follow up as needed Mode of Arrival: Ambulatory Information source: Patient Notes: 35-year-old male presented to ED for complaint of severe palpitations while work ing out. He states his heart went from his normal tachycardia from workout to a pounding feeling very short of breath feels like he cannot get any air into his lungs. During EMS ride his heart rate was sinus rhythm at 90. He is alert oriented respirations regular nonlabored at this time. He does have a history of heart attacks and tachycardia. 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 He is a former smoker has not had any alcohol or drugs in a while. 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 He is on Toprol for tachycardia and high blood pressure. I have greeted and performed a rapid initial assessment of this patient. A comprehensive ED assessment and evaluation of the patient, analysis of test results and completion of medical decision making process will be conducted by an additional ED providers. TRAVEL OUTSIDE OF THE [place] IN LAST 30 DAYS: No - Related Data Allergies/Adverse Reactions: codeine [Codeine] Adverse Reaction (Intermediate, Verified 03/14/20 17:25) severe stomach pain tramadol HCl [From Ultram] Adverse Reaction (Intermediate, Verified 03/14/20 17:25) severe stomach problems Past Medical History - Social History Frequency of alcohol use: None Drug Abuse: None - Past Medical History Cardiac Medical History: Reports: Hx Hypertension - MEDICATED, Hx Heart Murmur - MVP Denies: Hx Coronary Artery Disease, Hx Heart Attack Pulmonary Medical History: Reports: Hx Pneumonia - A BABY Denies: Hx Asthma, Hx Bronchitis, Hx COPD Neurological Medical History: Reports: Hx Migraine. Denies: Hx Cerebrovascular Accident, Hx Seizures Renal/ Medical History: Denies: Hx Peritoneal Dialysis GI Medical History: Reports: Hx Gastritis, Hx Gastroesophageal Reflux Disease, Hx Hiatal Hernia Musculoskeltal Medical History: Denies Hx Arthritis Psychiatric Medical History: Reports: Hx Anxiety, Hx Depression - anxiety Past Surgical History: Reports: Hx Orthopedic Surgery - club feet bilateral - Immunizations Hx Diphtheria, Pertussis, Tetanus Vaccination: Yes Physical Exam - Vital signs Vitals: Temp Pulse Resp BP Pulse Ox 98.2 F 82 16 135/82 H 97 03/14/20 16:50 03/14/20 16:50 03/14/20 16:50 03/14/20 16:50 03/14/20 16:50 Course - Vital Signs Vital signs: Temp Pulse Resp BP Pulse Ox 98.2 F 82 16 135/82 H 97 03/14/20 17:26 03/14/20 16:50 03/14/20 16:50 03/14/20 16:50 03/14/20 16:50 Doctor's Discharge - Discharge Referrals: ARDEN ALEXIS MD [Primary Care Provider] - Follow up as needed
[2020-03-14] MEDS ORDERED: ASPIRIN 81 MG TABLET, CHEWABLE PO ONE (18:00)
[2020-03-14 18:12] LABS: ABSOLUTE BASOPHILS # (AUTO) 0.1 10^3/uL (0.0-0.2); ABSOLUTE EOSINOPHILS # (AUTO) 0.1 10^3/uL (0.0-0.6); ABSOLUTE LYMPHOCYTES (AUTO) 1.4 10^3/uL (0.5-4.7); ABSOLUTE MONOCYTES (AUTO) 0.7 10^3/uL (0.1-1.4); ABSOLUTE NEUT (AUTO) 4.3 10^3/uL (1.7-8.2); BASOPHILS % (AUTO) 1.1 % (0-2); HEMATOCRIT 47.2 % (37.9-51.0); HEMOGLOBIN 16.5 g/dL (13.5-17.0); LYMPHOCYTES % (AUTO) 21.1 % (13-45); MEAN CORPUSCULAR HEMOGLOBIN 31.2 pg (27.0-33.4); MEAN CORPUSCULAR VOLUME 89 fl (80-97); MONOCYTES % (AUTO) 10.7 % (3-13); PLATELET COUNT 174 10^3/uL (150-450); RED CELL DISTRIBUTION WIDTH 13.6 % (11.5-14.0); SEGMENTED NEUTROPHILS % (AUTO) 66.1 % (42-78); TOTAL CELLS COUNTED % (AUTO) 100 %; WHITE BLOOD COUNT 6.5 10^3/uL (4.0-10.5)
[2020-03-14 18:28] LABS: ALBUMIN 4.3 g/dL (3.5-5.0); ALKALINE PHOSPHATASE 59 U/L (38-126); ANION GAP 5 (5-19); ASPARTATE AMINO TRANSFERASE 26 U/L (17-59); BILIRUBIN,TOTAL 1.6 mg/dL (0.2-1.3); BLOOD UREA NITROGEN 19 mg/dL (7-20); CALCIUM 9.2 mg/dL (8.4-10.2); CARBON DIOXIDE 28 mmol/L (22-30); CHLORIDE 104 mmol/L (98-107); GLUCOSE 96 mg/dL (75-110); POTASSIUM 4.5 mmol/L (3.6-5.0); TOTAL PROTEIN 7.3 g/dL (6.3-8.2)
--- NOTE | 2020-03-14 18:34 | RADIOLOGY REPORT (SQ) ---
EXAM DESCRIPTION: CHEST 2 VIEWS IMAGES COMPLETED DATE/TIME: 03/14/2020 5:08 pm REASON FOR STUDY: palpitations COMPARISON: 09/30/2016 EXAM PARAMETERS: NUMBER OF VIEWS: two views TECHNIQUE: Digital Frontal and Lateral radiographic views of the chest acquired. RADIATION DOSE: NA LIMITATIONS: none FINDINGS: LUNGS AND PLEURA: There is no focal consolidation or pleural effusion. No pneumothorax. Possible circumscribed 1.5 cm nodule just inferior to the right pulmonary hilum versus superimposed v ascular shadows. MEDIASTINUM AND HILAR STRUCTURES: No masses or contour abnormalities. HEART AND VASCULAR STRUCTURES: Heart normal size. No evidence for failure. BONES: No acute findings. HARDWARE: None in the chest. OTHER: No other significant finding. IMPRESSION: Possible right perihilar nodule versus superimposed vascular shadows. Further evaluatio n with contrast-enhanced CT is recommended. No acute cardiopulmonary disease. TECHNICAL DOCUMENTATION: JOB ID: [id number] [employer]- All Rights Reserved Reading location - IP/workstation name: [email or web address]
--- NOTE | 2020-03-14 20:43 | ER Document Report ---
ED General - General Chief Complaint: Palpitations Stated Complaint: DIZZINESS,ANXIOUS Time Seen by Provider: 03/14/20 17:31 Primary Care Provider: ARDEN ALEXIS MD [Primary Care Provider] - Follow up as needed Mode of Arrival: Ambulatory Notes: Patient is a 35-year-old male with a past medical history of pots who takes Toprol daily who presents to the emergency department with a chief complaint of near syncopal episode while working out today. The patient states that he was doing bicep curls, lifting weights when he suddenly felt abnormal. He states he could feel his heart racing and "pounding" in his chest and he got a sensation of shortness of breath. He felt like he might pass out. He states he tried to flower buncher or picker his phone to call his father and he could not coordinate it. He states this was isolated transient incident. He denies taking any pre-workout supplements or anabolic steroids or other drugs. He does not drink alcohol. He states he had breakfast before working out with some orange juice. He states he normally hydrates very well with water, does not drink soda. Denies any other chronic medical condition. He states he sees cardiology yearly for follow-up in regards to his diagnosis of pots as a teenager. Here in the ED he feels well, asymptomatic. He denies any headache, dizziness, visual disturbances, numbness, tingling or weakness. Patient also adds that he has had issues with anxiety in the past. TRAVEL OUTSIDE OF THE [place] IN LAST 30 DAYS: No - Related Data Allergies/Adverse Reactions: codeine [Codeine] Adverse Reaction (Intermediate, Verified 03/14/20 17:25) severe stomach pain tramadol HCl [From Ultram] Adverse Reaction (Intermediate, Verified 03/14/20 17:25) severe stomach problems Past Medical History - General Information source: Patient - Social History Smoking Status: Current Every Day Smoker Frequency of alcohol use: None Drug Abuse: None Family History: Reviewed & Not Pertinent Patient has homicidal ideation: No - Past Medical History Cardiac Medical History: Reports: Hx Hypertension - MEDICATED, Hx Heart Murmur - MVP Denies: Hx Coronary Artery Disease, Hx Heart Attack Pulmonary Medical History: Reports: Hx Pneumonia - A BABY Denies: Hx Asthma, Hx Bronchitis, Hx COPD Neurological Medical History: Reports: Hx Migraine. Denies: Hx Cerebrovascular Accident, Hx Seizures Renal/ Medical History: Denies: Hx Peritoneal Dialysis GI Medical History: Reports: Hx Gastritis, Hx Gastroesophageal Reflux Disease, Hx Hiatal Hernia Musculoskeletal Medical History: Denies Hx Arthritis Psychiatric Medical History: Reports: Hx Anxiety, Hx Depression - anxiety Past Surgical History: Reports: Hx Orthopedic Surgery - club feet bilateral - Immunizations Hx Diphtheria, Pertussis, Tetanus Vaccination: Yes Review of Systems - Review of Systems Cardiovascular: Heart racing, Dyspnea, Lightheaded. denies: Chest pain -: Yes All other systems reviewed and negative Physical Exam - Vital signs Vitals: Temp Pulse Resp BP Pulse Ox 98.2 F 82 16 135/82 H 97 03/14/20 16:50 03/14/20 16:50 03/14/20 16:50 03/14/20 16:50 03/14/20 16:50 - General General appearance: Appears well, Alert In distress: None - HEENT Head: Normocephalic, Atraumatic Eyes: Normal Conjunctiva: Normal Extraocular movements intact: Yes Pupils: PERRL Ears: Normal External canal: Normal Tympanic membrane: Normal Nasal: Normal Mouth/Lips: Normal Mucous membranes: Normal, Moist Pharynx: Normal Neck: Supple - Respiratory Respiratory status: No respiratory distress Chest status: Nontender Breath sounds: Normal Chest palpation: Normal - Cardiovascular Rhythm: Regular Heart sounds: Normal auscultation Murmur: No - Extremities General upper extremity: Normal inspection, Nontender, Normal color, Normal ROM, Normal temperature General lower extremity: Normal inspection, Nontender, Normal color, Normal ROM, Normal temperature, Normal weight bearing. No: Derrek's sign - Neurological Neuro grossly intact: Yes Cognition: Normal Orientation: AAOx4 Ne[place]u Coma Scale Eye Opening: Spontaneous [place] Coma Scale Verbal: Oriented [place] Coma Scale Motor: Obeys Commands [place] Coma Scale Total: 15 Speech: Normal Cranial nerves: Normal Cerebellar coordination: Normal Motor strength normal: LUE, RUE, LLE, RLE Additional motor exam normals: Equal import/export clerk. No: Weakness Sensory: Normal - Psychological Associated symptoms: Normal affect, Normal mood - Skin Skin Temperature: Warm Skin Moisture: Dry Skin Color: Normal Course - Re-evaluation Re-evalutation: 03/14/20 20:43 EK: Sinus rhythm at 68 bpm. Normal intervals.. J-point elevation with some early repolarization. No STEMI. Some peaked T waves. T wave inversions V1 V2. Largely unchanged from prior EKG dated 08/29/2018. 03/14/20 22:17 Patient is resting comfortably in the room upon reevaluation. He is remained asymptomatic throughout his stay. We hydrated him with 1 L normal saline. Chest x-ray had a questionable nodule in the right hilar region. CT scan shows that to be pulmonary vasculature. EKG unchanged from prior. Not tachycardic here. Work-up largely unremarkable otherwise. He will call his bingo cashier first thing Monday morning to advise them of this episode for further outpatient monitoring, surveillance, care and management. I advised that he return here or any ER immediately with any new, persistent or worsening symptoms. He verbalized understood and agreed. - Vital Signs Vital signs: Temp Pulse Resp BP Pulse Ox 98.2 F 82 18 130/82 H 100 03/14/20 17:26 03/14/20 16:50 03/14/20 19:01 03/14/20 19:01 03/14/20 19:01 - Laboratory Result Diagrams: 03/14/20 17:33 03/14/20 17:33 Laboratory results interpreted by me: 03/14/20 17:33 Total Bilirubin 1.6 H Discharge - Discharge Clinical Impression: Palpitation, Near syncope Condition: Stable Disposition: HOME, SELF-CARE Instructions: Beta Blockers ([facility]) Additional Instructions: Please call your bingo cashier first thing Monday morning to advise them of this incident and have continued outpatient care. Please return here or any ER immediately with any new, persistent or worsening symptoms. Referrals: ARDEN ALEXIS MD [Primary Care Provider] - Follow up as needed
[2020-03-14] MEDS ORDERED: NORMAL SALINE 1000 ML 1,000 ML IV ONE (21:00)
--- NOTE | 2020-03-14 21:52 | EKG REPORT ---
SEVERITY:- BORDERLINE ECG - SINUS RHYTHM PROBABLE LEFT ATRIAL ABNORMALITY ST ELEV, PROBABLE NORMAL EARLY REPOL PATTERN : Confirmed by: Ana Laura Edge MD 14-Mar-2020 21:52:07
--- NOTE | 2020-03-14 22:06 | RADIOLOGY REPORT (SQ) ---
EXAM DESCRIPTION: CT CHEST WITH IV CONTRAST COMPLETED DATE/TME: 03/14/2020 20:38 CLINICAL HISTORY: 35 years, Male, ? nodule on CT Comparison: Chest radiographs March 14, 2020 TECHNIQUE: Contiguous axial CT images of the chest were obtained. Sagittal and coronal reformats were reviewed. This exam was performed according to our departmental dose-optimization program, which includes automated exposure control, adjustment of the mA and/or kV according to patient size and/or use of iterative reconstruction technique. FINDINGS: Lungs: No focal lung consolidation. The questionable right hilar nodule seen on recent chest radiograph corresponds to pulmonary vasculature. No nodular changes are identified on this exam. No pleural effusion. No pneumothorax. Thoracic aorta: Unremarkable. Heart: Unremarkable. Mediastinum: No pathologic sized middle mediastinal lymphadenopathy. Upper abdomen: Partially imaged. No acute abnormality. Bones: Unremarkable. Soft tissues: Unremarkable Impression: The lungs are clear. The questionable pulmonary nodule in the right infrahilar region seen on previous chest radiograph corresponds to pulmonary vasculature. All CT scanners at this facility use dose modulation, iterative reconstruction, and/or weight based dosing when appropriate to reduce radiation dose to as low as reasonably achievable (ALARA). [facility]: Dose Right [facility]: CareDose [facility]: Dose Right [facility]: Teradose 4D [facility]: GreenSQL TECHNICAL DOCUMENTATION: Quality ID # [id number]: Final reports with documentation of one or more dose reduction techniques (e.g., Automated exposure control, adjustment of the mA and/or kV according to patient size, use of iterative reconstruction technique) copyright 2011 [employer]- All Rights Reserved
[2020-03-14 22:30] VITALS: BP 125/84
== END 2020-03-14 22:30 | disposition home or self-care (01) ==
LOC: ER 16:45
DX: R00.2 Palpitations (principal); R42 Dizziness and giddiness; F41.9 Anxiety disorder, unspecified; X50.0XXA Overexertion from strenuous movement or load, initial encounter; Z88.8 Allergy status to other drugs, medicaments and biological substances; F17.200 Nicotine dependence, unspecified, uncomplicated; I10 Essential (primary) hypertension; Z79.899 Other long term (current) drug therapy
CPT/HCPCS: 93005; 99285; 96360; 36415; 85025; 80053; 84484; 71046; 71260; 93010; J7030

== ENCOUNTER 2020-07-03 15:14 | Emergency (ER) | payer MEDICAID ==
[2020-07-03 15:30] VITALS: BP 121/79
--- NOTE | 2020-07-03 16:06 | ER Document Report ---
ED Medical Screen (RME) - General Chief Complaint: Rib Pain Stated Complaint: LEFT RIB AREA PAIN Time Seen by Provider: 07/03/20 16:00 Primary Care Provider: ARDEN ALEXIS MD [Primary Care Provider] - Follow up as needed Mode of Arrival: Ambulatory Information source: Patient Notes: 35-year-old male presented to ED for complaint of left-sided chest pain. He states his feels like there is a large bubble in the left side of his chest. He states his nonstop chest pain since last night. 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 He states he does not smoke drink or use any drugs. He is alert oriented respirations regular nonlabored speaking in full sentences. I did explain to him that he would need a EKG chest x-ray blood work and be seen by a provider since he was having left-sided chest pain. He states he has nobody that can watch the children. I explained he would be here for a while he needs to get this chest pain evaluated. He insisted that that he has no one to watch the children and he cannot stay. I tried several times to try to convince him to stay and get testing done. He decided he was going to leave AMA. He states he would come back if he found somebody to watch the children but his was in [place] and his uncle is been out of town and he has no one to watch the children. Patient did leave without signing the AMA paper but he did verbalize understanding of the AMA. TRAVEL OUTSIDE OF THE [place] IN LAST 30 DAYS: No - Related Data Allergies/Adverse Reactions: codeine [Codeine] Adverse Reaction (Intermediate, Verified 03/14/20 17:25) severe stomach pain tramadol HCl [From Ultram] Adverse Reaction (Intermediate, Verified 03/14/20 17:25) severe stomach problems Past Medical History - Past Medical History Cardiac Medical History: Reports: Hx Hypertension - MEDICATED, Hx Heart Murmur - MVP Denies: Hx Coronary Artery Disease, Hx Heart Attack Pulmonary Medical History: Reports: Hx Pneumonia - A BABY Denies: Hx Asthma, Hx Bronchitis, Hx COPD Neurological Medical History: Reports: Hx Migraine. Denies: Hx Cerebrovascular Accident, Hx Seizures Renal/ Medical History: Denies: Hx Peritoneal Dialysis GI Medical History: Reports: Hx Gastritis, Hx Gastroesophageal Reflux Disease, Hx Hiatal Hernia Musculoskeltal Medical History: Denies Hx Arthritis Psychiatric Medical History: Reports: Hx Anxiety, Hx Depression - anxiety Past Surgical History: Reports: Hx Orthopedic Surgery - club feet bilateral - Immunizations Hx Diphtheria, Pertussis, Tetanus Vaccination: Yes Physical Exam - Vital signs Vitals: Temp Pulse Resp BP Pulse Ox 98.7 F 70 16 121/79 99 07/03/20 15:29 07/03/20 15:29 07/03/20 15:29 07/03/20 15:29 07/03/20 15:29 Course - Vital Signs Vital signs: Temp Pulse Resp BP Pulse Ox 98.7 F 70 16 121/79 99 07/03/20 15:29 07/03/20 15:29 07/03/20 15:29 07/03/20 15:29 07/03/20 15:29 Doctor's Discharge - Discharge Clinical Impression: Chest pain Qualifiers: Chest pain type: unspecified Qualified Code(s): R07.9 - Chest pain, unspecified Disposition: AGAINST MEDICAL ADVICE Referrals: ARDEN ALEXIS MD [Primary Care Provider] - Follow up as needed
--- NOTE | 2020-07-04 21:01 | EKG REPORT ---
SEVERITY:- NORMAL ECG - SINUS RHYTHM : Confirmed by: Nabeel Coleman MD 04-Jul-2020 21:00:46
== END 2020-07-03 16:18 | disposition left against medical advice (07) ==
LOC: ER 15:14
DX: R07.9 Chest pain, unspecified (principal); R07.81 Pleurodynia; Z88.6 Allergy status to analgesic agent
CPT/HCPCS: 93005; 93010; 99283

== ENCOUNTER 2020-07-04 14:35 | Emergency (ER) | payer MEDICAID ==
[2020-07-04 15:03] VITALS: BP 123/70
--- NOTE | 2020-07-04 15:21 | ER Document Report ---
ED Medical Screen (RME) - General Chief Complaint: Chest Pain Stated Complaint: RIB PAIN Time Seen by Provider: 07/04/20 15:15 Primary Care Provider: ARDEN ALEXIS MD [Primary Care Provider] - Follow up as needed Mode of Arrival: Ambulatory Information source: Patient Notes: 35-year-old male presented to ED for complaint of left-sided chest pain. He states his feels like there is a large bubble in the left side of his chest. He states his nonstop chest pain since last night. 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 He states he does not smoke drink or use any drugs. He is alert oriented respirations regular nonlabored speaking in full sentences. He came yesterday with 2 small children and would not stay to get his testing done because he had 2 small children and they did not want to stay. He has returned today as he was severely instructed if he had any more chest pain. He states he is having chest pain again and would like to be evaluated he does not have his children with him. I have greeted and performed a rapid initial assessment of this patient. A comprehensive ED assessment and evaluation of the patient, analysis of test results and completion of medical decision making process will be conducted by an additional ED providers. TRAVEL OUTSIDE OF THE [place] IN LAST 30 DAYS: No - Related Data Allergies/Adverse Reactions: codeine [Codeine] Adverse Reaction (Intermediate, Verified 03/14/20 17:25) severe stomach pain tramadol HCl [From Ultram] Adverse Reaction (Intermediate, Verified 03/14/20 17:25) severe stomach problems Past Medical History - Past Medical History Cardiac Medical History: Reports: Hx Hypertension - MEDICATED, Hx Heart Murmur - MVP Denies: Hx Coronary Artery Disease, Hx Heart Attack Pulmonary Medical History: Reports: Hx Pneumonia - A BABY Denies: Hx Asthma, Hx Bronchitis, Hx COPD Neurological Medical History: Reports: Hx Migraine. Denies: Hx Cerebrovascular Accident, Hx Seizures Renal/ Medical History: Denies: Hx Peritoneal Dialysis GI Medical History: Reports: Hx Gastritis, Hx Gastroesophageal Reflux Disease, Hx Hiatal Hernia Musculoskeltal Medical History: Denies Hx Arthritis Psychiatric Medical History: Reports: Hx Anxiety, Hx Depression - anxiety Past Surgical History: Reports: Hx Orthopedic Surgery - club feet bilateral - Immunizations Hx Diphtheria, Pertussis, Tetanus Vaccination: Yes Physical Exam - Vital signs Vitals: Temp Pulse Resp BP Pulse Ox 98.5 F 68 16 123/70 98 07/04/20 15:01 07/04/20 15:01 07/04/20 15:01 07/04/20 15:01 07/04/20 15:01 Course - Vital Signs Vital signs: Temp Pulse Resp BP Pulse Ox 98.5 F 68 16 123/70 98 07/04/20 15:01 07/04/20 15:01 07/04/20 15:01 07/04/20 15:01 07/04/20 15:01 Doctor's Discharge - Discharge Referrals: ARDEN ALEXIS MD [Primary Care Provider] - Follow up as needed
[2020-07-04] MEDS ORDERED: ASPIRIN 81 MG TABLET, CHEWABLE PO ONE (15:25)
[2020-07-04 16:04] LABS: ABSOLUTE BASOPHILS # (AUTO) 0.1 10^3/uL (0.0-0.2); ABSOLUTE EOSINOPHILS # (AUTO) 0.1 10^3/uL (0.0-0.6); ABSOLUTE LYMPHOCYTES (AUTO) 1.6 10^3/uL (0.5-4.7); ABSOLUTE MONOCYTES (AUTO) 0.6 10^3/uL (0.1-1.4); ABSOLUTE NEUT (AUTO) 4.8 10^3/uL (1.7-8.2); EOSINOPHILS % (AUTO) 0.7 % (0-6); HEMATOCRIT 47.7 % (37.9-51.0); HEMOGLOBIN 16.7 g/dL (13.5-17.0); LYMPHOCYTES % (AUTO) 22.6 % (13-45); MEAN CORPUSCULAR HEMOGLOBIN 30.9 pg (27.0-33.4); MEAN CORPUSCULAR HGB CONC 34.9 g/dL (32.0-36.0); MEAN CORPUSCULAR VOLUME 89 fl (80-97); MONOCYTES % (AUTO) 8.7 % (3-13); PLATELET COUNT 187 10^3/uL (150-450); RED BLOOD COUNT 5.39 10^6/uL (4.35-5.55); RED CELL DISTRIBUTION WIDTH 13.1 % (11.5-14.0); TOTAL CELLS COUNTED % (AUTO) 100 %; WHITE BLOOD COUNT 7.1 10^3/uL (4.0-10.5)
--- NOTE | 2020-07-04 16:05 | RADIOLOGY REPORT (SQ) ---
EXAM DESCRIPTION: CHEST 2 VIEWS IMAGES COMPLETED DATE/TIME: 07/04/2020 2:36 pm REASON FOR STUDY: chest pain COMPARISON: 09/20/2016 EXAM PARAMETERS: NUMBER OF VIEWS: two views TECHNIQUE: Digital Frontal and Lateral radiographic views of the chest acquired. RADIATION DOSE: NA LIMITATIONS: none FINDINGS: LUNGS AND PLEURA: No opacities, masses or pneumothorax. No pleural effusion. MEDIASTINUM AND HILAR STRUCTURES: No masses or contour abnormalities. HEART AND VASCULAR STRUCTURES: Heart normal size. No evidence for failure. BONES: No acute findings. HARDWARE: None in the chest. OTHER: No other significant finding. IMPRESSION: NO ACUTE RADIOGRAPHIC FINDING IN THE CHEST. TECHNICAL DOCUMENTATION: JOB ID: [id number] 2010 [employer]- All Rights Reserved Reading location - IP/workstation name: [email or web address]
[2020-07-04 16:22] LABS: ALBUMIN 4.4 g/dL (3.5-5.0); ALKALINE PHOSPHATASE 65 U/L (38-126); ANION GAP 7 (5-19); ASPARTATE AMINO TRANSFERASE 25 U/L (17-59); BILIRUBIN,DIRECT 0.3 mg/dL (0.0-0.4); BILIRUBIN,TOTAL 2.8 mg/dL (0.2-1.3); BLOOD UREA NITROGEN 15 mg/dL (7-20); CALCIUM 9.5 mg/dL (8.4-10.2); CARBON DIOXIDE 29 mmol/L (22-30); CHLORIDE 104 mmol/L (98-107); CREATINE KINASE 127 U/L (55-170); GLUCOSE 103 mg/dL (75-110); POTASSIUM 4.5 mmol/L (3.6-5.0); TOTAL PROTEIN 7.3 g/dL (6.3-8.2)
[2020-07-04] MEDS ORDERED: METOCLOPRAMIDE HCL ORAL SOLN 10 MG/10 ML UDCUP PO ONE (17:51)
[2020-07-04] MEDS ORDERED: LIDOCAINE 2% VISCOUS SOLN 15 ML UDCUP PO ONE (17:51)
[2020-07-04] MEDS ORDERED: MAG HYDROX/AL HYDROX/SIMETH SUSP 30 ML UDCUP PO ONE (17:51)
[2020-07-04] MEDS ORDERED: IBUPROFEN 800 MG TABLET PO ONE (17:54)
--- NOTE | 2020-07-04 17:56 | ER Document Report ---
ED General - General Chief Complaint: Chest Pain Stated Complaint: RIB PAIN Time Seen by Provider: 07/04/20 15:15 Primary Care Provider: ARDEN ALEXIS MD [Primary Care Provider] - Follow up as needed VINH FERRARA MD [ACTIVE STAFF] - Follow up as needed MICHAEL IBRY MD [ACTIVE PROVISIONAL STAFF] - Follow up as needed Mode of Arrival: Ambulatory TRAVEL OUTSIDE OF THE [place] IN LAST 30 DAYS: No - HPI Notes: 35-year-old male presents emergency room for left-sided chest pain that started 4 days ago, states chest pain is constant and sharp and stabbing. Denies any radiation of pain. Patient states that chest pain is worse with different pos itions. Denies any trauma to his chest. Patient has not tried any [id number] medications. Reports pain is 3 out of 5. Able to point out exactly where his pain is. Reports he does have a history of pots as well as me of mitral valve prolapse, he does follow with Dr. Irby behavior analyst, states he did have an echocardiogram and a stress test recently within the last couple of years. Reports mother has a history of hypertension in father history of hyperlipidemia, no family history of heart attack or stroke. Patient follows with Dr. Randall for gastritis. States he was taking Nexium but he recently stopped within the last 6 months because he does not like it was working. Did have an endoscopy done within the last couple years which she stated did show gastritis patient is a non-smoker. Patient states he came to the emergency room yesterday with 2 little kids but because it took a long time, he went home. States his chest pain is much better today. Denies fevers, chills,palpitations, shortness of breath, dyspnea, nausea, vomiting, diarrhea, abdominal pain, hematuria,blurred vision, double vision, loss of vision, speech changes, LH, dizziness, syncope, headaches, wheezing, ST, URI, neck pain, weakness, bowel or bladder dysfunction, saddle anesthesia, numbness or tingling in bilateral upper or lower extremities equally, muscle paralysis, weakness in bilateral upper or lower extremities equally or rash. Denies IV drug use. MEDICATIONS: I agree with the patient medications as charted by the RN. ALLERGIES: I agree with the allergies as charted by the RN. PAST MEDICAL HISTORY/PAST SURGICAL HISTORY: Reviewed and agree as charted by RN. SOCIAL HISTORY: Reviewed and agree as charted by RN. FAMILY HISTORY: No significant familial comorbid conditions directly related to patient complaint EXAM: Reviewed vital signs as charted by RN. REVIEW OF SYSTEMS:reviewed vital signs by RN CONSTITUTIONAL : Denies fever, chills, or sweats. Denies recent illness. EENT: Denies eye, ear, throat, or mouth pain or symptoms. Denies nasal or sinus congestion or discharge. Denies throat, tongue, or mouth swelling or difficulty swallowing. CARDIOVASCULAR: reports chest pain. Denies palpitations or racing or irregular heart beat. Denies ankle edema. RESPIRATORY: Denies cough, cold, or chest congestion. Denies shortness of breath, difficulty breathing, or wheezing. GASTROINTESTINAL: Denies abdominal pain or distention. Denies nausea, vomiting, or diarrhea. Denies blood in vomitus, stools, or per rectum. Denies black, tarry stools. Denies constipation. GENITOURINARY: Denies difficulty urinating, painful urination, burning, frequency, blood in urine, or discharge. MUSCULOSKELETAL: Denies back or neck pain or stiffness. Denies joint pain or swelling. SKIN: Denies rash, lesions or sores. HEMATOLOGIC : Denies easy bruising or bleeding. LYMPHATIC: Denies swollen, enlarged glands. NEUROLOGICAL: Denies confusion or altered mental status. Denies passing out or loss of consciousness. Denies dizziness or lightheadedness. Denies headache. Denies weakness or paralysis or loss of use of either side. Denies problems with gait or speech. Denies sensory loss, numbness, or tingling. Denies seizures. PSYCHIATRIC: Denies anxiety or stress. Denies depression, suicidal ideation, or homicidal ideation. ALL OTHER SYSTEMS REVIEWED AND NEGATIVE. Dictation was performed using [employer] voice recognition software PHYSICAL EXAMINATION: GENERAL: Well-appearing, well-nourished and in no acute distress. HEAD: Atraumatic, normocephalic. EYES: Pupils equal round and reactive to light, extraocular movements intact, sclera anicteric, conjunctiva are normal. ENT: Nares patent, oropharynx clear without exudates. Moist mucous membranes. NECK: Normal range of motion, supple without lymphadenopathy LUNGS: Breath sounds clear to auscultation bilaterally and equal. No wheezes rales or rhonchi. HEART: Regular rate and rhythm without murmurs. Able to reproduce chest pain on palpation to seventh or eighth intercostal space, no step-off noted. Patient states this is the chest pain that brought him to the emergency room. ABDOMEN: Soft, nontender, nondistended abdomen. No guarding, no rebound. No masses appreciated. Musculoskeletal: Normal range of motion, no pitting or edema. No cyanosis. NEUROLOGICAL: Cranial nerves grossly intact. Normal speech, normal gait. Normal sensory, motor exams PSYCH: Normal mood, normal affect. SKIN: Warm, Dry, normal turgor, no rashes or lesions noted. - Related Data Allergies/Adverse Reactions: codeine [Codeine] Adverse Reaction (Intermediate, Verified 03/14/20 17:25) severe stomach pain tramadol HCl [From Ultram] Adverse Reaction (Intermediate, Verified 03/14/20 17:25) severe stomach problems Past Medical History - General Information source: Patient - Social History Smoking Status: Never Smoker Family History: Reviewed & Not Pertinent - Past Medical History Cardiac Medical History: Reports: Hx Hypertension - MEDICATED, Hx Heart Murmur - MVP Denies: Hx Coronary Artery Disease, Hx Heart Attack Pulmonary Medical History: Reports: Hx Pneumonia - A BABY Denies: Hx Asthma, Hx Bronchitis, Hx COPD Neurological Medical History: Reports: Hx Migraine. Denies: Hx Cerebrovascular Accident, Hx Seizures Renal/ Medical History: Denies: Hx Peritoneal Dialysis GI Medical History: Reports: Hx Gastritis, Hx Gastroesophageal Reflux Disease, Hx Hiatal Hernia Musculoskeletal Medical History: Denies Hx Arthritis Psychiatric Medical History: Reports: Hx Anxiety, Hx Depression - anxiety Past Surgical History: Reports: Hx Orthopedic Surgery - club feet bilateral - Immunizations Hx Diphtheria, Pertussis, Tetanus Vaccination: Yes Physical Exam - Vital signs Vitals: Temp Pulse Resp BP Pulse Ox 98.5 F 68 16 123/70 98 07/04/20 15:01 07/04/20 15:01 07/04/20 15:01 07/04/20 15:01 07/04/20 15:01 Course - Re-evaluation Re-evalutation: 07/04/20 17:55 Afebrile vital stable no distress. Nurses notes reviewed. Chest x-ray unremarkable, EKG normal sinus rhythm. Troponin negative. CBC negative for leukocytosis or anemia, CMP negative for hepatic or renal dysfunction. Troponin was well.. Patient refused GI cocktail and stated that this was taking too long, he wanted to leave AGAINST MEDICAL ADVICE. After performing a Medical Screening Examination, I spoke with the patient at length in regards to leaving the hospital against medical advice. I do not believe the patient should leave but the patient is alert oriented x4, understands the risks and benefits of staying and leaving including disability and . Pt understands that he can return at any time for further care and is more than welcome to do so. Pt verbalizes this understanding. - Vital Signs Vital signs: Temp Pulse Resp BP Pulse Ox 98.5 F 68 16 123/70 98 07/04/20 15:01 07/04/20 15:01 07/04/20 15:01 07/04/20 15:01 07/04/20 15:01 - Laboratory Result Diagrams: 07/04/20 15:50 07/04/20 15:50 Laboratory results interpreted by me: 07/04/20 15:50 Magnesium 2.4 H Total Bilirubin 2.8 H Discharge - Discharge Clinical Impression: Chest pain Condition: Fair Disposition: ADMITTED INPATIENT Instructions: Chest Wall Pain ([facility]), Prilosec (Acid Pump Inhibitor) ([facility]), Reflux Disease (GERD) ([facility]) Prescriptions: Naproxen 500 mg PO BID #10 tablet Omeprazole 20 mg PO BID #40 capsule.dr Referrals: ARDEN ALEXIS MD [Primary Care Provider] - Follow up as needed MICHAEL IRBY MD [ACTIVE PROVISIONAL STAFF] - Follow up as needed VINH FERRARA MD [ACTIVE STAFF] - Follow up as needed
== END 2020-07-04 18:28 | disposition other institution (70) ==
LOC: ER 14:35
DX: R07.9 Chest pain, unspecified (principal); R07.81 Pleurodynia; I10 Essential (primary) hypertension; Z88.6 Allergy status to analgesic agent
CPT/HCPCS: 36415; 71046; 80053; 82550; 83735; 84484; 85025; 99285

== ENCOUNTER → 2020-09-07 | Outpatient (CLI) | payer MEDICAID ==
--- NOTE | 2020-09-07 11:15 | RADIOLOGY REPORT (SQ) ---
EXAM DESCRIPTION: U/S ABDOMEN LIMITED W/O DOP IMAGES COMPLETED DATE/TIME: 09/07/2020 10:19 am REASON FOR STUDY: UPPER ABDOMINAL PAIN R10.10 UPPER ABDOMINAL PAIN, UNSPECIFIED COMPARISON: None. TECHNIQUE: Dynamic and static grayscale images acquired of the abdomen and recorded on PACS. Additio nal selected color Doppler and spectral images recorded. LIMITATIONS: None. FINDINGS: PANCREAS: No masses. Visualized pancreatic duct normal caliber. LIVER: The liver measures 13.5 cm in length, normal size. Normal echotexture. No masses. Echotextu re normal. LIVER VASCULATURE: Normal directional flow of the main portal vein and hepatic veins. GALLBLADDER: Small 3.0 mm subcentimeter gallbladder polyp. The gallbladder wall measures 1.4 mm, no rmal wall thickness. No pericholecystic fluid. ULTRASOUND-DETECTED FENG'S SIGN: Negative. INTRAHEPATIC DUCTS AND COMMON DUCT: CBD measures 2.2 mm in diameter, normal. The inntrahepatic ducts normal caliber. No filling defects. INFERIOR VENA CAVA: Normal flow. AORTA: No aneurysm. RIGHT KIDNEY: The right kidney measures 10.3 x 3.9 x 4.9 cm, normal size. Normal echogenicity. No solid or suspicious masses. No hydronephrosis. No calcifications. PERITONEAL AND RIGHT PLEURAL SPACE: No ascites or effusions. OTHER: No other significant findings. IMPRESSION: 1. Small subcentimeter gallbladder polyp. 2. Examination is otherwise unremarkable sonographically. TECHNICAL DOCUMENTATION: JOB ID: [id number] 2010 [employer]- All Rights Reserved Reading location - IP/workstation name: [email or web address]
== END ==
LOC: RAD 09:13
PROVIDERS: ATTEND Nurse Practitioner Family
DX: K82.4 Cholesterolosis of gallbladder (principal); R10.10 Upper abdominal pain, unspecified
CPT/HCPCS: 76705